=== PATIENT | female | born 1930 | race Caucasian/White ===

== ENCOUNTER 2016-09-07 17:33 | Emergency (ER) | payer MEDICARE ==
[2016-09-07 19:28] LABS: Hematocrit 36 % (35-47); Mean Corpuscular HGB Conc 34 g/dl (31-36); Mean Corpuscular Hemoglobin 33 pg (27-31); Mean Corpuscular Volume 96 fL (80-97); Mean Platelet Volume 9 um3 (7.4-10.4); Red Blood Count 3.71 10^6/ul (4.0-5.4); Red Cell Distribution Width 14 % (10.5-15); White Blood Count 9.6 10^3/ul (3.5-10.8)
[2016-09-07 19:40] LABS: Albumin 3.9 g/dL (3.2-5.2); BUN/Creatinine Ratio 26.6 (8-20); C Reactive Protein 4.37 mg/L (< 5.00); Calcium 9.5 mg/dL (8.6-10.3); EGFR African American 44.6 (>60); EGFR Non-African American 34.7 (>60); Globulin 3.5 g/dL (2-4); Magnesium 2.3 mg/dL (1.9-2.7); Potassium 3.6 mmol/L (3.5-5.0); Total Bilirubin 0.6 mg/dL (0.2-1.0); Total Protein 7.4 g/dL (6.4-8.9)
[2016-09-07 19:46] LABS: Troponin I 0.04 ng/mL (<0.04)
[2016-09-07 19:48] LABS: Add Diff/Slide Review? Slide Review Added; Comments Flag Yes
--- NOTE | 2016-09-07 19:56 | RAD ---
Indication: Dizziness. CT of the brain was performed without IV contrast. Ventricular structures are midline. No midline shift is noted. There is central and cortical atrophy. Periventricular lucency consistent with chronic ischemic white matter changes noted. There is no evidence of intracranial mass or hemorrhage. No other high or low density lesions are identified. Mastoid air cells and paranasal sinuses are otherwise unremarkable. Motion artifact does degrade some the images. IMPRESSION: Atrophy. Chronic ischemic White matter change. No intracranial mass or hemorrhage is noted.
[2016-09-07 20:20] LABS: Mean Platelet Volume 8 um3 (7.4-10.4)
--- NOTE | 2016-09-07 20:37 | RAD ---
Indication: Dizziness, fall. Single frontal view of the chest performed at 1900 hours was reviewed. Comparison is made with previous exam dated March 08, 2012. No mediastinal shift is noted. Heart is of normal size and configuration. Lung louis appear clear. IMPRESSION: NO ACTIVE CARDIOPULMONARY DISEASE IS NOTED.
[2016-09-07] MEDS ORDERED: NS 0.9% 1000 ML* 1,000 ML IV ONE (21:07)
--- NOTE | 2016-09-07 21:52 | ED ---
Eric Poe Billy, scribed for Tomer Mckeon MD on 09/07/16 at 1822 . Dizziness - HPI Summary HPI Summary: Patient is an 86 year-old female with a history of dementia coming to [facility] with a messenger copy for evaluation of an episode of dizziness. She was BIBA from home. Patient was doing yardwork when she bent down and fell over. At this time in the ED, patient denies any symptoms such as chest pain, shortness of breath, dizziness, or pain anywhere in the body. - History Of Current Complaint Chief Complaint: EDDizziness Stated Complaint: FALL Time Seen by Provider: 09/07/16 18:07 Hx Obtained From: Patient Onset/Duration: Resolved Severity Initially: Moderate Severity Currently: Moderate Aggravating Factor(s): Nothing Alleviating Factor(s): Nothing Associated Signs And Symptoms: Negative: Chest Pain, SOB - Allergies/Home Medications Allergies/Adverse Reactions: Allergies Allergy/AdvReac Type Severity Reaction Status Date / Time No Known Allergies Allergy Verified 09/07/16 17:43 Home Medications: Home Medications Cyanocobalamin [Vitamin B-12 Tr] 1,000 mcg PO DAILY 09/07/16 [History Confirmed 09/07/16] Escitalopram Oxalate [Lexapro] 10 mg PO DAILY 09/07/16 [History Confirmed ] Naproxen Sodium [Naproxen Sodium 220 mg] 220 mg PO Q12HR PRN 09/07/16 [History Confirmed 09/07/16] Simvastatin TAB(NF) [Zocor(NF)] 10 mg PO DAILY 09/07/16 [History Confirmed 09/07] Triamterene/HCTZ 37.5-25 MG* [Dyazide CAP*] 1 cap PO EVERY OTHER DAY 09/07/16 [ History Confirmed 09/07/16] PMH/Surg Hx/FS Hx/Imm Hx Cardiovascular History: Reports: Hx Hypertension Neurological History: Reports: Hx Dementia - Cancer History Cancer Type, Location and Year: Breast CA Lt breast Infectious Disease History: No Infectious Disease History: Denies: Traveled Outside the [place] in Last 30 Days - Family History Family History: No family history of breast cancer. - Social History Alcohol Use: None Substance Use Type: Reports: None Smoking Status (MU): Former Smoker Review of Systems Negative: Chest Pain Negative: Shortness Of Breath Negative: Arthralgia, Myalgia Neurological: Other - dizzy All Other Systems Reviewed And Are Negative: Yes Physical Exam Triage Information Reviewed: Yes Vital Signs On Initial Exam: Initial Vitals Temp Pulse Resp BP Pulse Ox 98.2 F 70 13 146/91 97 09/07/16 17:38 09/07/16 17:38 09/07/16 17:38 09/07/16 17:38 09/07/16 17:38 Vital Signs Reviewed: Yes Appearance: Positive: Well-Appearing, No Pain Distress Skin: Positive: Warm, Skin Color Reflects Adequate Perfusion, Dry Head/Face: Positive: Normal Head/Face Inspection Eyes: Positive: EOMI, HODAN ENT: Positive: Normal ENT inspection Neck: Positive: Supple, Nontender Respiratory/Lung Sounds: Positive: Clear to Auscultation, Breath Sounds Present Cardiovascular: Positive: RRR Abdomen Description: Positive: Nontender, Soft Bowel Sounds: Positive: Present Musculoskeletal: Positive: Normal, Strength/ROM Intact Neurological: Positive: Normal, Sensory/Motor Intact, Alert, Oriented to Person Place, Time Psychiatric: Positive: Affect/Mood Appropriate - Sujey Coma Scale Coma Scale Total: 14 Diagnostics - Vital Signs Vital Signs Temp Pulse Resp BP Pulse Ox 09/07/16 18:12 65 15 97 09/07/16 17:45 98.7 F 69 16 146/91 97 09/07/16 17:38 98.2 F 70 13 146/91 97 - Laboratory Lab Results: Lab Results 09/07/16 09/07/16 09/07/16 Range/Units 19:15 19:15 19:15 WBC 9.6 (3.5-10.8) 10^3/ul RBC 3.71 L (4.0-5.4) 10^6/ul Hgb 12.0 (12.0-16.0) g/dl Hct 36 (35-47) % MCV 96 (80-97) fL MCH 33 H (27-31) pg MCHC 34 (31-36) g/dl RDW 14 (10.5-15) % Plt Count 71 L (150-450) 10^3/ul MPV 9 (7.4-10.4) um3 Neut % (Auto) 81.8 (38-83) % Lymph % (Auto) 9.9 L (25-47) % [place] % (Auto) 3.8 (1-9) % Eos % (Auto) 2.9 (0-6) % Baso % (Auto) 1.6 (0-2) % Absolute Neuts (auto) 7.8 H (1.5-7.7) 10^3/ul Absolute Lymphs (auto) 1.0 (1.0-4.8) 10^3/ul Absolute Monos (auto) 0.4 (0-0.8) 10^3/ul Absolute Eos (auto) 0.3 (0-0.6) 10^3/ul Absolute Basos (auto) 0.1 (0-0.2) 10^3/ul Absolute Nucleated RBC 0.01 10^3/ul Nucleated RBC % 0.1 INR (Anticoag Therapy) 0.90 (0.89-1.11) APTT 16.6 L (26.0-36.3) seconds Sodium 138 (133-145) mmol/L Potassium 3.6 (3.5-5.0) mmol/L Chloride 100 L (101-111) mmol/L Carbon Dioxide 28 (22-32) mmol/L Anion Gap 10 (2-11) mmol/L BUN 38 H (6-24) mg/dL Creatinine 1.43 H (0.51-0.95) mg/dL Est GFR ( Amer) 44.6 (>60) Est GFR (Non-Af Amer) 34.7 (>60) BUN/Creatinine Ratio 26.6 H (8-20) Glucose 108 H (70-100) mg/dL Lactic Acid (0.5-2.0) mmol/L Calcium 9.5 (8.6-10.3) mg/dL Magnesium 2.3 (1.9-2.7) mg/dL Total Bilirubin 0.60 (0.2-1.0) mg/dL AST 21 (13-39) U/L ALT 12 (7-52) U/L Alkaline Phosphatase 77 (34-104) U/L Total Creatine Kinase 93 (10-223) U/L CK-MB (CK-2) 4.9 (0.6-6.3) ng/mL Troponin I 0.04 H* (<0.04) ng/mL C-Reactive Protein 4.37 (< 5.00) mg/L Total Protein 7.4 (6.4-8.9) g/dL Albumin 3.9 (3.2-5.2) g/dL Globulin 3.5 (2-4) g/dL Albumin/Globulin Ratio 1.1 (1-3) Lipase 158 H (11.0-82.0) U/L TSH (0.34-5.60) mcIU/mL 09/07/16 09/07/16 09/07/16 Range/Units 19:15 19:35 19:58 WBC (3.5-10.8) 10^3/ul RBC (4.0-5.4) 10^6/ul Hgb (12.0-16.0) g/dl Hct (35-47) % MCV (80-97) fL MCH (27-31) pg MCHC (31-36) g/dl RDW (10.5-15) % Plt Count 215 (150-450) 10^3/ul MPV 8 (7.4-10.4) um3 Neut % (Auto) (38-83) % Lymph % (Auto) (25-47) % [place] % (Auto) (1-9) % Eos % (Auto) (0-6) % Baso % (Auto) (0-2) % Absolute Neuts (auto) (1.5-7.7) 10^3/ul Absolute Lymphs (auto) (1.0-4.8) 10^3/ul Absolute Monos (auto) (0-0.8) 10^3/ul Absolute Eos (auto) (0-0.6) 10^3/ul Absolute Basos (auto) (0-0.2) 10^3/ul Absolute Nucleated RBC 10^3/ul Nucleated RBC % INR (Anticoag Therapy) (0.89-1.11) APTT (26.0-36.3) seconds Sodium (133-145) mmol/L Potassium (3.5-5.0) mmol/L Chloride (101-111) mmol/L Carbon Dioxide (22-32) mmol/L Anion Gap (2-11) mmol/L BUN (6-24) mg/dL Creatinine (0.51-0.95) mg/dL Est GFR ( Amer) (>60) Est GFR (Non-Af Amer) (>60) BUN/Creatinine Ratio (8-20) Glucose (70-100) mg/dL Lactic Acid 0.9 (0.5-2.0) mmol/L Calcium (8.6-10.3) mg/dL Magnesium (1.9-2.7) mg/dL Total Bilirubin (0.2-1.0) mg/dL AST (13-39) U/L ALT (7-52) U/L Alkaline Phosphatase (34-104) U/L Total Creatine Kinase (10-223) U/L CK-MB (CK-2) (0.6-6.3) ng/mL Troponin I (<0.04) ng/mL C-Reactive Protein (< 5.00) mg/L Total Protein (6.4-8.9) g/dL Albumin (3.2-5.2) g/dL Globulin (2-4) g/dL Albumin/Globulin Ratio (1-3) Lipase (11.0-82.0) U/L TSH 2.21 (0.34-5.60) mcIU/mL Result Diagrams: 09/07/16 19:58 09/07/16 19:15 Lab Statement: Any lab studies that have been ordered have been reviewed, and results considered in the medical decision making process. - Radiology CXR Xray Interpretation: No Acute Changes Radiology Interpretation Completed By: Radiologist - CT Brain CT Interpretation Completed By: Radiologist - Atrophy. Chronic ischemic White matter change. No intracranial mass or hemorrhage is noted. - EKG 1746 Cardiac Rate: NL - 68 bpm EKG Rhythm: Sinus Rhythm ST Segment: Normal Ectopy: None Re-Evaluation - Re-Evaluation First Eval Re-Evaluation Time: 21:00 Comment: Labs and imaging reviewed. Dizzy Course/Dx - Course Course Of Treatment: NO CRITICAL CARE TIME Assessment/Plan: PATIENT STABLE AND WELL IN ED. AMBULATED WITHOUT DIFFICULTY. PATIENT DENIES CHEST PAIN.SHE HAS DEMENTIA. THE PLAN IS A 3 HOUR TROPONIN; IF NO INCREASE, THEN DISCHARGE HOME. IF IT ELEVATES OR PATIENT UNWELL, THEN ADMISSION. - Diagnoses Provider Diagnoses: Fall Discharge - Discharge Plan Condition: Stable Disposition: HOME Patient Education Materials: Fall Prevention (ED) Referrals: Vanesa Kaufman MD [Primary Care Provider] - Additional Instructions: FOLLOW UP WITH YOUR DOCTOR. RETURN TO THE EMERGENCY DEPARTMENT FOR ANY WORSENING OF YOUR CONDITION OR QUESTIONS OR CONCERNS. The documentation as recorded by the Eric vail Billy accurately reflects the service I personally performed and the decisions made by me, Tomer Mckeon MD.
[2016-09-07 22:21] LABS: Urine Bacteria Absent (Absent); Urine Bilirubin Negative (Negative); Urine Glucose Negative (Negative); Urine Nitrite Negative (Negative)
[2016-09-07 23:24] VITALS: BP 125/73
== END 2016-09-07 23:27 | disposition home or self-care (01) ==
LOC: ED 17:33
DX: R42 Dizziness and giddiness (principal); F03.90 Unspecified dementia, unspecified severity, without behavioral disturbance, psychotic disturbance, mood disturbance, and anxiety; I10 Essential (primary) hypertension; Z87.891 Personal history of nicotine dependence; W19.XXXA Unspecified fall, initial encounter; Y93.H2 Activity, gardening and landscaping; Y92.9 Unspecified place or not applicable
CPT/HCPCS: 36415; 70450; 71010; 80053; 81003; 81015; 82550; 82553; 83605; 83690; 83735; 84443; 84484; 85025; 85049; 85610; 85730; 86140; 87086; 96360; 99284

== ENCOUNTER 2016-10-24 15:00 | Emergency (ER) | payer MEDICARE ==
[2016-10-24] MEDS ORDERED: NS 0.9% 1000 ML* 500 ML IV ONE (15:35)
[2016-10-24 16:08] LABS: Hematocrit 35 % (35-47); Mean Corpuscular HGB Conc 34 g/dl (31-36); Mean Corpuscular Hemoglobin 32 pg (27-31); Mean Corpuscular Volume 95 fL (80-97); Mean Platelet Volume 8 um3 (7.4-10.4); Red Blood Count 3.71 10^6/ul (4.0-5.4); Red Cell Distribution Width 14 % (10.5-15); White Blood Count 7.7 10^3/ul (3.5-10.8)
[2016-10-24 16:15] LABS: ALT 15 U/L (7-52); AST 25 U/L (13-39); Albumin 3.9 g/dL (3.2-5.2); Alkaline Phosphatase 63 U/L (34-104); Anion Gap 8 mmol/L (2-11); BUN/Creatinine Ratio 32.9 (8-20); Blood Urea Nitrogen 48 mg/dL (6-24); CO2 Carbon Dioxide 30 mmol/L (22-32); Calcium 9.9 mg/dL (8.6-10.3); Chloride 101 mmol/L (101-111); EGFR African American 43.6 (>60); EGFR Non-African American 33.9 (>60); Globulin 3.7 g/dL (2-4); Glucose 92 mg/dL (70-100); Potassium 3.6 mmol/L (3.5-5.0); Sodium 139 mmol/L (133-145); Total Protein 7.6 g/dL (6.4-8.9)
--- NOTE | 2016-10-24 16:29 | RAD ---
INDICATION: Altered mental status. COMPARISON: Comparison is made with prior study from September 07, 2016. TECHNIQUE: A portable view of the chest was obtained. FINDINGS: Cardiac and mediastinal contours appear to be within normal limits. The lungs are clear. No pleural effusion is seen. There are multiple surgical clips in the left axilla. IMPRESSION: NO EVIDENCE FOR ACUTE DISEASE.
[2016-10-24 16:58] LABS: Alcohol < 10 mg/dL (<10)
[2016-10-24 17:06] VITALS: BP 110/54
--- NOTE | 2016-10-25 11:08 | ED ---
Kelby Poe Auryana, scribed for Joshua Lucero MD on 10/24/16 at 1653 . Neurological HPI - HPI Summary HPI Summary: 86 y/o female presents ED s/p a fall earlier today. Patient was found on her lawn without pants. Patient reports no memory of the fall- (+) LOC. Nurse also reports that the patient had 1 prior episode - fell into a ditch. She denies any pain. PMHx is significant for dementia. - History of Current Complaint Chief Complaint: EDHipPelvisInjury Stated Complaint: FALL Time Seen by Provider: 10/24/16 15:24 Hx Obtained From: Patient Onset/Duration: Sudden Onset Timing: Sudden Onset Current Severity: Mild Seizure Severity: Mild Neurological Deficit Location: Generalized Pain Intensity: 0 Pain Scale Used: 0-10 Numeric Syncope Context: Unwitnessed Associated Signs and Symptoms: Positive: Loss of Consciousness. Negative: Pain , Fever Similar Episode/Dx as: SEE HPI - Allergy/Home Medications Allergies/Adverse Reactions: Allergies Allergy/AdvReac Type Severity Reaction Status Date / Time No Known Allergies Allergy Verified 09/07/16 17:43 Home Medications: Home Medications Escitalopram (NF) [Lexapro 10 mg (NF)] 10 mg PO DAILY 10/24/16 [History Confirmed 10/24/16] Naproxen Sodium [Naproxen Sodium 220 mg cap] 220 mg PO BID PRN 10/24/16 [ History Confirmed 10/24/16] PMH/Surg Hx/FS Hx/Imm Hx Cardiovascular History: Reports: Hx Hypertension Neurological History: Reports: Hx Dementia - Cancer History Cancer Type, Location and Year: Breast CA Lt breast Infectious Disease History: No Infectious Disease History: Denies: Traveled Outside the [place] in Last 30 Days - Family History Known Family History: Positive: Cardiac Disease - Coronary Artery Disease Family History: No family history of breast cancer. 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 GENERAL: Patient is a well-developed and nourished elderly female who is lying comfortable in the stretcher. Patient is not in any acute respiratory distress. HEAD AND FACE: No signs of trauma. No ecchymosis, hematomas or skull depressions. No sinus tenderness. EYES: PERRLA, EOMI x 2, No injected conjunctiva, no nystagmus. EARS: Hearing grossly intact. Ear canals and tympanic membranes are within normal limits. MOUTH: Oropharynx within normal limits. NECK: Supple, trachea is midline, no adenopathy, no JVD, no carotid bruit, no c- spine tenderness, neck with full ROM. CHEST: Symmetric, no tenderness at palpation LUNGS: Clear to auscultation bilaterally. No wheezing or crackles. CVS: Regular rate and rhythm, S1 and S2 present, no murmurs or gallops appreciated. ABDOMEN: Soft, non-tender. No signs of distention. No rebound no guarding, and no masses palpated. Bowel sounds are normal. EXTREMITIES: FROM in all major joints, bilateral LE 1+ edema, no cyanosis or clubbing. NEURO: Alert and oriented x 3. No acute neurological deficits. Dementia at baseline. Speech is normal and follows commands. SKIN: Dry and warm. Scratch areas in back and legs. Triage Information Reviewed: Yes Vital Signs On Initial Exam: Initial Vitals Temp Pulse Resp BP Pulse Ox 99.0 F 84 20 118/72 96 10/24/16 15:05 10/24/16 15:05 10/24/16 15:05 10/24/16 15:05 10/24/16 15:05 Vital Signs Reviewed: Yes Diagnostics - Vital Signs Vital Signs Temp Pulse Resp BP Pulse Ox 10/24/16 15:33 98.6 F 89 14 116/89 99 10/24/16 15:05 99.0 F 84 20 118/72 96 - Laboratory Lab Results: Lab Results 10/24/16 10/24/16 10/24/16 Range/Units 15:52 15:52 15:52 WBC 7.7 (3.5-10.8) 10^3/ul RBC 3.71 L (4.0-5.4) 10^6/ul Hgb 12.0 (12.0-16.0) g/dl Hct 35 (35-47) % MCV 95 (80-97) fL MCH 32 H (27-31) pg MCHC 34 (31-36) g/dl RDW 14 (10.5-15) % Plt Count 238 (150-450) 10^3/ul MPV 8 (7.4-10.4) um3 Neut % (Auto) 70.0 (38-83) % Lymph % (Auto) 16.5 L (25-47) % [place] % (Auto) 9.6 H (1-9) % Eos % (Auto) 3.2 (0-6) % Baso % (Auto) 0.7 (0-2) % Absolute Neuts (auto) 5.4 (1.5-7.7) 10^3/ul Absolute Lymphs (auto) 1.3 (1.0-4.8) 10^3/ul Absolute Monos (auto) 0.7 (0-0.8) 10^3/ul Absolute Eos (auto) 0.2 (0-0.6) 10^3/ul Absolute Basos (auto) 0.1 (0-0.2) 10^3/ul Absolute Nucleated RBC 0 10^3/ul Nucleated RBC % 0 Sodium 139 (133-145) mmol/L Potassium 3.6 (3.5-5.0) mmol/L Chloride 101 (101-111) mmol/L Carbon Dioxide 30 (22-32) mmol/L Anion Gap 8 (2-11) mmol/L BUN 48 H (6-24) mg/dL Creatinine 1.46 H (0.51-0.95) mg/dL Est GFR ( Amer) 43.6 (>60) Est GFR (Non-Af Amer) 33.9 (>60) BUN/Creatinine Ratio 32.9 H (8-20) Glucose 92 (70-100) mg/dL Lactic Acid 0.7 (0.5-2.0) mmol/L Calcium 9.9 (8.6-10.3) mg/dL Total Bilirubin 1.20 H (0.2-1.0) mg/dL AST 25 (13-39) U/L ALT 15 (7-52) U/L Alkaline Phosphatase 63 (34-104) U/L Ammonia (16-53) mol/L Total Protein 7.6 (6.4-8.9) g/dL Albumin 3.9 (3.2-5.2) g/dL Globulin 3.7 (2-4) g/dL Albumin/Globulin Ratio 1.1 (1-3) Serum Alcohol < 10 (<10) mg/dL 10/24/16 Range/Units 15:52 WBC (3.5-10.8) 10^3/ul RBC (4.0-5.4) 10^6/ul Hgb (12.0-16.0) g/dl Hct (35-47) % MCV (80-97) fL MCH (27-31) pg MCHC (31-36) g/dl RDW (10.5-15) % Plt Count (150-450) 10^3/ul MPV (7.4-10.4) um3 Neut % (Auto) (38-83) % Lymph % (Auto) (25-47) % [place] % (Auto) (1-9) % Eos % (Auto) (0-6) % Baso % (Auto) (0-2) % Absolute Neuts (auto) (1.5-7.7) 10^3/ul Absolute Lymphs (auto) (1.0-4.8) 10^3/ul Absolute Monos (auto) (0-0.8) 10^3/ul Absolute Eos (auto) (0-0.6) 10^3/ul Absolute Basos (auto) (0-0.2) 10^3/ul Absolute Nucleated RBC 10^3/ul Nucleated RBC % Sodium (133-145) mmol/L Potassium (3.5-5.0) mmol/L Chloride (101-111) mmol/L Carbon Dioxide (22-32) mmol/L Anion Gap (2-11) mmol/L BUN (6-24) mg/dL Creatinine (0.51-0.95) mg/dL Est GFR ( Amer) (>60) Est GFR (Non-Af Amer) (>60) BUN/Creatinine Ratio (8-20) Glucose (70-100) mg/dL Lactic Acid (0.5-2.0) mmol/L Calcium (8.6-10.3) mg/dL Total Bilirubin (0.2-1.0) mg/dL AST (13-39) U/L ALT (7-52) U/L Alkaline Phosphatase (34-104) U/L Ammonia 30 (16-53) mol/L Total Protein (6.4-8.9) g/dL Albumin (3.2-5.2) g/dL Globulin (2-4) g/dL Albumin/Globulin Ratio (1-3) Serum Alcohol (<10) mg/dL Result Diagrams: 10/24/16 15:52 10/24/16 15:52 Lab Statement: Any lab studies that have been ordered have been reviewed, and results considered in the medical decision making process. - Radiology Chest XRAY Xray Interpretation: No Acute Changes - No evidence for acute disease. Radiology Interpretation Completed By: Radiologist Course/Dx - Course Assessment/Plan: 86 y/o female presents ED s/p a fall earlier today. Patient was found on her lawn without pants. Patient reports no memory of the fall- (+ ) LOC. Nurse also reports that the patient had 1 prior episode - fell into a ditch. She denies any pain. PMHx is significant for dementia. Tests were WNL, except for chronic renal failure. In the ED course, Pt was given iv fluids. At this point the pt feels better with no complaints and was able to ambulate in the ED. Patients brother came in and reports she has history of dementia and that she is at her baseline. Therefore he wanted to take her home and he will stay with her for the next couple of days. The patient is hemodynamically stable and AOx3. - Diagnoses Provider Diagnoses: Dementia Discharge - Discharge Plan Condition: Stable Disposition: HOME Patient Education Materials: Dementia (ED) Referrals: Vanesa Kaufman MD [Primary Care Provider] - 2 Days The documentation as recorded by the Kelby vail Auryana accurately reflects the service I personally performed and the decisions made by , Joshua Lucero MD.
== END 2016-10-24 17:08 | disposition home or self-care (01) ==
LOC: ED 15:00
DX: F03.90 Unspecified dementia, unspecified severity, without behavioral disturbance, psychotic disturbance, mood disturbance, and anxiety (principal); R55 Syncope and collapse; I10 Essential (primary) hypertension; Z85.3 Personal history of malignant neoplasm of breast; Z87.891 Personal history of nicotine dependence
CPT/HCPCS: 36415; 71010; 80053; 80320; 82140; 83605; 85025; 99282; G0480

== ENCOUNTER 2017-11-19 09:03 | Observation (INO) | payer MEDICARE, MEDICAID ==
--- NOTE | 2017-11-19 09:51 | RAD ---
HISTORY: HEAD INJURY, AMS COMPARISONS: None TECHNIQUE: Multiple contiguous axial CT scans were obtained of the head without intravenous contrast. FINDINGS: HEMORRHAGE/INFARCT: There is no hemorrhage or acute infarct. MASSES/SHIFT: There is no mass or shift. 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 This is stable. SULCI AND VENTRICLES: There is diffuse and proportional enlargement of the sulci and ventricles. CEREBRUM: There is diffuse hypoattenuation of the periventricular and subcortical white matter. BRAINSTEM: There are no focal parenchymal abnormalities. CEREBELLUM: There are no focal parenchymal abnormalities. VESSELS: There is calcification of the cavernous segments of the internal carotid arteries bilaterally. PARANASAL SINUSES: The paranasal sinuses are clear. ORBITS: The orbits are unremarkable. BONES AND SOFT TISSUE: There is soft tissue swelling along the left frontal scalp. OTHER: None IMPRESSION: NO ACUTE INTRACRANIAL PATHOLOGY. DIFFUSE INVOLUTIONAL CHANGE WITH CHRONIC SMALL VESSEL ISCHEMIC CHANGES.
--- NOTE | 2017-11-19 10:02 | RAD ---
INDICATION: Head injury. Altered mental status. COMPARISON: No relevant prior exams available on the [facility] PACS for comparison. TECHNIQUE: Multidetector CT images foramen magnum to lung apices without contrast. Multiplanar reformation. REPORT: Atherosclerotic calcification at the carotid bifurcations. 2 mm degenerative C3-C4 and C4-C5 anterolisthesis. Negative for facet subluxation at any level. Chronic appearing probable degenerative loss of height at the C5, C6, and C7 vertebral bodies with complete disc space loss at C5-C6 and C6-C7 with ankylosis. Probable ankylosis at C7-T1. Diffuse degenerative spondylosis and facet joint osteoarthritis. Negative for fracture. At C3-C4 uncinate process spurring and facet joint osteoarthritis results in moderately severe bilateral foraminal stenosis. At C5-C6 dorsal spondylitic ridging results in only mild impression on the ventral margin of the thecal sac with congenitally generous pedicles lengths mitigating against more significant central canal stenosis. At C6-C7 uncinate process spurring and facet joint osteoarthritis results in mild RIGHT unilateral foraminal stenosis. Unremarkable paravertebral soft tissues. IMPRESSION: #. No CT evidence for traumatic cervical spine injury. #. 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 Ankylosis at C5-C6, C6-C7, and likely C7-T1 levels.
--- NOTE | 2017-11-19 10:18 | RAD ---
HISTORY: FALL WEAKNESS COMPARISONS: October 24, 2016 VIEWS: 1: frontal portable view of the chest at 9:52 AM FINDINGS: LINES AND TUBES: None. CARDIOMEDIASTINAL SILHOUETTE: The cardiomediastinal silhouette is normal for portable technique. PLEURA: The costophrenic angles are sharp. No pleural abnormalities are noted. LUNG PARENCHYMA: The lungs are clear. ABDOMEN: The upper abdomen is clear. There is no subphrenic gas. BONES AND SOFT TISSUES: Surgical clips are noted in the left axilla IMPRESSION: NO ACTIVE CARDIOPULMONARY DISEASE.
[2017-11-19 10:24] LABS: ABS Basophils 0 10^3/ul (0-0.2); ABS Eosinophils 0.1 10^3/ul (0-0.6); ABS Lymphocytes 0.6 10^3/ul (1.0-4.8); ABS Monocytes 0.5 10^3/ul (0-0.8); ABS Neutrophils 5.8 10^3/ul (1.5-7.7); ABS Nucleated RBC 0 10^3/ul; Hematocrit 35 % (35-47); Hemoglobin 12.2 g/dl (12.0-16.0); Lymphocyte % 9.1 % (25-47); Mean Corpuscular HGB Conc 35 g/dl (31-36); Mean Corpuscular Hemoglobin 33 pg (27-31); Mean Corpuscular Volume 94 fL (80-97); Mean Platelet Volume 8.4 um3 (7.4-10.4); Nucleated Red Blood Cells % 0.1; Platelet Count 188 10^3/ul (150-450); Red Blood Count 3.72 10^6/ul (4.00-5.40); Red Cell Distribution Width 14 % (10.5-15); White Blood Count 7.1 10^3/ul (3.5-10.8)
[2017-11-19 10:39] LABS: INR 0.93 (0.77-1.02)
[2017-11-19 10:44] LABS: EGFR Non-African American 38.7 (>60)
[2017-11-19 13:06] LABS: Urine Appearance Cloudy; Urine Blood 1+ (Negative); Urine Color Yellow; Urine Ketones Negative (Negative); Urine Protein Negative (Negative); Urine Red Blood Cell Trace(0-2/hpf) (Absent); Urine Specific Gravity 1.013 (1.010-1.030); Urine Urobilinogen Negative (Negative); Urine White Blood Cell 2+(11-20/hpf) (Absent)
[2017-11-19] MEDS ORDERED: Ciprofloxacin 400MG IVPREMIX(* 400 MG/200 ML BAG IVPB ONE (13:27)
[2017-11-19] MEDS ORDERED: cefTRIAXone(*) 1 GM in NS 0.9% 50 ML* 50 ML IVPB ONE (13:29)
[2017-11-19] MEDS ORDERED: NS 0.9% 1000 ML* 2,000 ML IV ONE (13:31)
[2017-11-19] MEDS ORDERED: Ondansetron INJ* 2 MG/ML VIAL IV PRN (14:53)
[2017-11-19] MEDS ORDERED: Acetaminophen TAB* 325 MG PO PRN (14:53)
[2017-11-19] MEDS ORDERED: Meclizine TAB* 12.5 MG PO PRN (14:55)
[2017-11-19] MEDS ORDERED: Potassium Chloride LIQUID* 20 MEQ PACKET PO ONE (14:58)
[2017-11-19] MEDS ORDERED: NS 0.9% 1000 ML* 1,000 ML IV SCH (15:00)
[2017-11-19] MEDS ORDERED: NS 0.9% 500 ML* 500 ML IV ONE (18:58)
[2017-11-19 19:47] LABS: INR 0.94 (0.77-1.02)
[2017-11-19] MEDS: Heparin VIAL(*) 5000 UNITS/ML VIAL (FIVE THOUSAND) SUBCUT SCH (20:54)
--- NOTE | 2017-11-19 22:08 | HP ---
CC: Dr. Hernandez* HISTORY AND PHYSICAL: DATE OF ADMISSION: 11/19/17 PRIMARY CARE PROVIDER: Dr. Hernandez. ATTENDING PHYSICIAN WHILE IN THE HOSPITAL: Landon Steiner MD* (report dictated by Fabian Garcia NP). CHIEF COMPLAINT: Fall. HISTORY OF PRESENT ILLNESS: I would like to preface the report by stating that this patient has a significant amount of underlying dementia. She really does not remember what happened today. She is coming in to our emergency department today. Apparently, according to the aide, the niece had placed the patient on the toilet, which was her daily routine, she was going to use the restroom. She was on the toilet and the niece had stepped out to give her privacy, she was making breakfast. The next thing that happened is the niece went back in, checked on the patient and the patient was found on the floor. It is unclear if she tried standing up. It is unclear if she had syncope. The patient does not recall any of this. It is unclear if she hit her head. There was a skin abrasion to the left shoulder and skin abrasion to the left lower extremity, but there was no pain there. The aide, who sees her on a daily basis, said that she has been recently treated for a UTI. She just finished Bactrim on Thursday. Her appetite has been improving and she has been feeling better. There was 1 report of vomiting on Thursday, but no abdominal pain, no diarrhea. There have been no reports of fever, no reports of cough or shortness of breath. There was concern because of the fall. She came into the ED. There was concern for possible syncope, although this is not clear if she did or not and there was concern that she may have a UTI and the hospitalist service was asked to evaluate for admission. PAST MEDICAL HISTORY: Significant for: 1. Hypertension. 2. Breast cancer. 3. Psoriasis. 4. Severe dementia. 5. Mild pancreatitis. PAST SURGICAL HISTORY: 1. The patient has had an ORIF of the left lower extremity. 2. She has had a lumpectomy. HOME MEDICATIONS: According to the list obtained, include: 1. Dyazide 1 capsule p.o. every other day. 2. Multivitamin 1 tablet daily. 3. Lexapro 10 mg daily. 4. Simvastatin 10 mg daily. 5. Meclizine 12.5 mg p.o. b.i.d. as needed. ALLERGIES TO MEDICATIONS: Include no known drug allergies. FAMILY HISTORY: Unknown. SOCIAL HISTORY: She is a former smoker, unclear how long and how much she smoked. She does not drink alcohol. Surrogate decision maker is her brother, Carlos Enrique. REVIEW OF SYSTEMS: Really unable to be obtained directly from the patient giving her advanced dementia. It was attempted, but again I question if she is understanding what I am asking her. PHYSICAL EXAMINATION GENERAL: At this time, Ms. Montano is an 87-year-old female patient. She is sitting in the ED stretcher. She does not appear to be in any acute distress. She appears to be well nourished and well developed. VITAL SIGNS: Blood pressure 96/63, pulse 85, respirations 18, O2 sat 95% on room air, temperature 97.2. HEENT: Head: Atraumatic, normocephalic. Eyes: Sclerae anicteric. Throat: Oral mucosa appears to be moist. No oropharyngeal erythema. NECK: Supple. LUNGS: Clear. No wheezing, rales, or rhonchi. HEART: Sounds S1, S2. Regular rate and rhythm. No murmurs, rubs, or gallops. ABDOMEN: Soft, flat, nontender. Bowel sounds are present. EXTREMITIES: Pulses 2+ throughout. She is able to move all 4 extremities with 5/5 strength. She had no pain on passive range of motion to the left shoulder or the left lower extremity. No pain was noted. NEUROLOGICAL: She is awake. She is oriented to herself only. She is confused to time and place. Speech clear. She had no gross focal deficits. SKIN: She does have an abrasion to the left shoulder. She has ecchymosis noted to the left lower extremity. No other open areas were noted. DIAGNOSTIC STUDIES/LAB DATA: Labs reveal WBC of 7.1, RBC of 3.72, hemoglobin of 12.2, hematocrit 35, platelet count of 188. INR 0.93, PTT of 19.1. Sodium 135, potassium 3.4, chloride 100, bicarb 25, BUN 22, creatinine 1.30, which is near her baseline. The glucose is 122, lactic 2.1, calcium 9.6. Total bili 0.9 , AST 28, ALT 14, alk phos 68. Troponin 0.01. Albumin of 4.0. Urinalysis showed 1+ blood, trace leukocyte esterase, 2+ wbc's, absent bacteria. Urine culture from last UA was negative. She had multiple imaging in the ED. Brain CT shows no acute intracranial pathology, diffuse involutional change with chronic small vessel ischemic changes. Cervical spine CT showed no CT evidence for traumatic cervical spine injury, diffuse advanced degenerative spondylosis and facet joint arthritis, at C5-6, C6-7, C7-T1. Chest x-ray obtained today showed no active cardiopulmonary disease. Old medical records were reviewed. ASSESSMENT AND PLAN: Ms. Montano is an 87-year-old female patient presenting to the ED today with complaints of a fall of unclear etiology. We were asked to evaluate for admission. She will be admitted under observation status for: 1. Fall. Again, it is possible that she may have syncopized, although it is unclear. This was unwitnessed. The patient cannot give me much history. I assume this was probably just a mechanical fall; however, I will admit her, cycle her troponins, check orthostatics, check an echo. In addition to this, she had a CT brain. I will cycle her troponins, place her on telemetry, monitor for any arrhythmias and we will continue to follow. She also does have a history of vertigo, this could have been vertigo, but she is not eliciting any signs of dizziness. We will need to monitor her, have PT evaluate her. If there is a concern for this, there is p.r.n. meclizine ordered and we will continue to follow. 2. Hypertension. Continue meds as prescribed. 3. Breast cancer. Follow up with PCP. 4. History of psoriasis. Not an active issue. 5. History of pancreatitis. She did have the 1 episode of vomiting. She is not eliciting any pain now, but I will check lipase just to be sure. 6. Dementia. Continue with supportive care. 7. DVT prophylaxis, high risk. She will be placed on heparin subcu. 8. Code status is unknown at this point. The aide is unsure. There is a brother, we will try to get in touch with him. There is no MOLST on file. For the time being until I know for sure, I will leave her as a full code. 9. Fluids, electrolytes, and nutrition: She can have a regular diet. I will replace her potassium as it is low. TIME SPENT: Time spent on the admission was 60 minutes, greater than half the time was spent [id number] with the patient obtaining my history and physical, other half of the time was spent going over the plan of care with the patient and implementing the plan of care. I did discuss the plan of care with my attending, Dr. Steiner, he is in agreement. FABIAN GARCIA, WILLIE [id number]/CPS #: [id number] ARABELLA
[2017-11-20 05:36] LABS: Hematocrit 28 % (35-47); Hemoglobin 9.7 g/dl (12.0-16.0); Mean Corpuscular HGB Conc 35 g/dl (31-36); Mean Corpuscular Hemoglobin 33 pg (27-31); Mean Corpuscular Volume 94 fL (80-97); Mean Platelet Volume 8.3 um3 (7.4-10.4); Platelet Count 167 10^3/ul (150-450); Red Blood Count 2.95 10^6/ul (4.00-5.40); Red Cell Distribution Width 14 % (10.5-15); White Blood Count 5.3 10^3/ul (3.5-10.8)
[2017-11-20 05:40] LABS: ABS Basophils 0.1 10^3/ul (0-0.2); ABS Eosinophils 0.1 10^3/ul (0-0.6); ABS Lymphocytes 1.5 10^3/ul (1.0-4.8); ABS Monocytes 0.8 10^3/ul (0-0.8); ABS Neutrophils 2.7 10^3/ul (1.5-7.7); ABS Nucleated RBC 0 10^3/ul
[2017-11-20 05:41] LABS: INR 0.96 (0.77-1.02)
[2017-11-20 05:51] LABS: EGFR Non-African American 50.6 (>60)
[2017-11-20 05:59] LABS: ABS Basophils 0 10^3/ul (0-0.2); ABS Neutrophils 2.5 10^3/ul (1.5-7.7); Monocytes % 14 % (0-7)
[2017-11-20] MEDS: Heparin VIAL(*) 5000 UNITS/ML VIAL (FIVE THOUSAND) SUBCUT SCH ×3 (06:13→22:15)
[2017-11-20] MEDS: CMC:Escitalopram (NF) 10 MG TAB PO SCH (08:33)
[2017-11-20] MEDS: CMC:Simvastatin TAB(NF) 10 MG TAB PO SCH (08:33)
[2017-11-20] MEDS: Multivitamins/Minerals TAB PO SCH (08:33)
--- NOTE | 2017-11-20 11:39 | ECHO ---
Patient: NANCY BOB [facility] Rec#: [id number] : 1930 Date: 11/20/2017 Age: 87y Height: 157 cm / 61.8 in Weight: 55.3 kg / 121.9 lbs Sex: F BSA: 1.55 Room#: [facility] Admit Date#: 11/20/2017 Type: Inpatient Referring: Fabian Garcia NP Reading: Cata Pérez MD Mobility Specialist: Janell Alba RDCS CC: Vanesa Kaufman MD Transthoracic Echocardiogram Indication: Syncope BP: 111/50 HR: 66 Rhythm: NSR with PVCs Findings History: Dementia, HTN, left breast cancer, former smoker. Technical Comments: The study quality is fair. Completed at 1045. Left Ventricle: The left ventricular chamber size is normal. There is no left ventricular hypertrophy. Global left ventricular wall motion and contractility are within normal limits. There is normal left ventricular systolic function. The estimated ejection fraction is 55-60%. Abnormal left ventricular diastolic function is observed. There is an E to A reversal in the mitral valve flow pattern suggestive of diastolic dysfunction. Left Atrium: The left atrial chamber size is normal. Right Ventricle: Moderator Band present. The right ventricular cavity size is normal. The right ventricular global systolic function is normal. Right Atrium: The right atrial cavity size is normal. Aortic Valve: The aortic valve is trileaflet. The aortic valve leaflets are mildly thickened. There is trace to mild aortic regurgitation. There is no evidence of aortic stenosis. Mitral Valve: There is mitral annular calcification. The mitral valve leaflets are mildly thickened. There is trace to mild mitral regurgitation. There is no evidence of mitral stenosis. Tricuspid Valve: The tricuspid valve leaflets are normal. There is trace tricuspid regurgitation. Unable to estimate the right ventricular systolic pressure. There is no tricuspid stenosis. Pulmonic Valve: The pulmonic valve appears normal. There is a trace pulmonic regurgitation. There is no pulmonic stenosis. Pericardium: There is no significant pericardial effusion. 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 There is no dilatation of the aortic arch. The aortic root is normal in size. Pulmonary Artery: The main pulmonary artery is not well visualized. Venous: The inferior vena cava appears normal in size. There is a greater than 50% respiratory change in the inferior vena cava dimension. Summary: There are changes noted when compared to the previous study done on 11/16/2003, MR, AI and TR are new. Ascending aorta dilatation is now moderate instead of mild then. Conclusions The left ventricular chamber size is normal. Global left ventricular wall motion and contractility are within normal limits. The estimated ejection fraction is 55-60%. Abnormal left ventricular diastolic function is observed. There is an E to A reversal in the mitral valve flow pattern suggestive of diastolic dysfunction. There is trace to mild aortic regurgitation. There is trace to mild mitral regurgitation. There is trace tricuspid regurgitation. Unable to estimate the right ventricular systolic pressure. 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 Measurements Name Value Normal Range RVIDd (AP) 2D 3 cm (0.9 - 2.6) RVDdMajor (2D) 4.2 cm (2.2 - 4.4) RAd ISD 4CH 4.8 cm (3.4 - 4.9) RA (A4C)W 4 cm (2.9 - 4.6) IVSd (2D) 0.8 cm (0.6 - 1) LVPWd (2D) 0.8 cm (0.6 - 1) LVIDd (2D) 4.3 cm (3.6 - 5.4) LVIDs (2D) 2.6 cm - LV FS (2D) 40 % (25 - 45) Aortic Annulus 2 cm (1.4 - 2.6) Ao root diameter (2D) 3.4 cm (2.1 - 3.5) Ascending Ao 4.4 cm (2.1 - 3.4) Aortic arch 2.4 cm (1.8 - 3.4) LA dimension (AP) 2D 3.4 cm (2.3 - 3.8) LAd ISD 4CH 5.2 cm (2.9 - 5.3) LA ISD 4CH W 4 cm (2.5 - 4.5) Name Value Normal Range LA ESV BP (A/L) index 31 ml/m2 - Name Value Normal Range MV E-wave Vmax 0.7 m/sec - MV deceleration time 261 msec - MV A-wave Vmax 1 m/sec - MV E:A ratio 0.7 ratio - LV septal e' Vmax 0.06 m/sec - LV lateral e' Vmax 0.06 m/sec - LV E:e' septal ratio 11.67 ratio - LV E:e' lateral ratio 11.67 ratio - Name Value Normal Range AV Vmax 1.3 m/sec - AV VTI 26.6 cm - AV peak gradient 6 mmHg - AV mean gradient 3 mmHg - LVOT Vmax 1.1 m/sec - LVOT VTI 22.7 cm - LVOT peak gradient 5 mmHg - LVOT mean gradient 2 mmHg - SOFÍA Vmax 0.8 m/sec - Name Value Normal Range IVC diameter 1.9 cm - Name Value Normal Range PV Vmax 0.8 m/sec - PV peak gradient 2 mmHg -
--- NOTE | 2017-11-20 20:11 | PN ---
Subjective Date of Service: 11/20/17 Interval History: Denies chest pain or shortness of breath . denies abd pain ,n/v/d. States that she is feeling well. Patient is confused to place, time and situation. Oriented to name. cooperative with staff. Family History: Unchanged from Admission Social History: Unchanged from Admission Past Medical History: Unchanged from Admission Objective Active Medications: Acetaminophen (Tylenol Tab*) 650 mg PO Q4H PRN PRN Reason: FEVER/PAIN Escitalopram Oxalate (Lexapro (Nf)) 10 mg PO DAILY [facility] Last Admin: 11/20/17 08:33 Dose: 10 mg Heparin Sodium (Porcine) (Heparin Vial(*)) 5,000 units SUBCUT Q8HR [facility] Last Admin: 11/20/17 13:38 Dose: 5,000 units Sodium Chloride (Ns 0.9% 1000 Ml*) 1,000 mls @ 100 mls/hr IV PER RATE [facility] Last Admin: 11/19/17 17:41 Dose: 100 mls/hr Meclizine HCl (Antivert Tab*) 12.5 mg PO BID PRN PRN Reason: DIZZINESS Last Admin: 11/19/17 17:39 Dose: 12.5 mg Multivitamins/Minerals (Theragran/Minerals Tab*) 1 tab PO DAILY [facility] Last Admin: 11/20/17 08:33 Dose: 1 tab Simvastatin (Zocor(Nf)) 10 mg PO DAILY [facility] Last Admin: 11/20/17 08:33 Dose: 10 mg Triamterene/HCTZ (Dyazide Cap*) 1 cap PO EVERY OTHER DAY [facility] Vital Signs - 8 hr 11/20/17 15:14 Temperature 97.8 F Pulse Rate 57 Respiratory 14 Rate Blood Pressure 120/60 (mmHg) O2 Sat by Pulse 98 Oximetry Oxygen Devices in Use Now: None Appearance: elderly female, appears calm sitting in the chair, confused, no acute distress Eyes: No Scleral Icterus Ears/Nose/Mouth/Throat: Mucous Membranes Moist Neck: NL Appearance and Movements; NL JVP, Trachea Midline Respiratory: Symmetrical Chest Expansion and Respiratory Effort, Clear to Auscultation Cardiovascular: NL Sounds; No Murmurs; No JVD, No Edema Abdominal: NL Sounds; No Tenderness; No Distention Extremities: No Edema, No Clubbing, Cyanosis Skin: No Rash or Ulcers Neurological: - - oriented to self only Nutrition: Taking PO's Result Diagrams: 11/20/17 05:15 11/20/17 05:15 Microbiology and Other Data: Microbiology 11/19/17 12:48 Urine Culture - Final Urine No Growth (<1,000 CFU/mL) 11/19/17 11:25 Aerobic Blood Culture - Preliminary Blood Venous No Growth Day 1 Anaerobic Blood Culture - Preliminary No Growth Day 1 11/19/17 10:11 Aerobic Blood Culture - Preliminary Blood Venous No Growth Day 1 Anaerobic Blood Culture - Preliminary No Growth Day 1 Assess/Plan/Problems-Billing Assessment: Ms. Montano is an 87 y.o female that presented to the emergency room after a unwitnessed fall at home. Patient has a history of dementia, HTN, Vertigo and hx of breast CA. admitted for fall vs syncope. - Patient Problems (1) Fall Current Visit: Yes Status: Acute Comment: Unwitnessed fall at home- unsure if event was a syncopal episode or mechanical fall - will monitor on telemetry for arrthymias - echo showed EF of 60%- diasyolic dysfunction - orthostatic - was given IV NS - will repeat in AM- denies dizziness (2) Dementia Current Visit: Yes Status: Acute Code(s): F03.90 - UNSPECIFIED DEMENTIA WITHOUT BEHAVIORAL DISTURBANCE SNOMED Code(s): 59438399 Comment: supportive care - patient is only oreinted to self, she is pleasent and calm, but unable to provide correct answers to questions. Patient would need 24 hour care at home for safety or placement. (3) HTN (hypertension) Current Visit: Yes Status: Acute Code(s): I10 - ESSENTIAL (PRIMARY) HYPERTENSION SNOMED Code(s): 12753611 Comment: Continue dyazide Will continue to monitor for hypotension and adjust medications as needed (4) HLD (hyperlipidemia) Current Visit: Yes Status: Acute Code(s): E78.5 - HYPERLIPIDEMIA, UNSPECIFIED SNOMED Code(s): 23449960 Comment: Continue simvastatin (5) DVT prophylaxis Current Visit: Yes Status: Acute Code(s): XBA7328 - SNOMED Code(s): 132930955 Comment: heparin SubQ (6) Full code status Current Visit: Yes Status: Acute Code(s): Z78.9 - OTHER SPECIFIED HEALTH STATUS SNOMED Code(s): 480993769 Status and Disposition: inpatient needs 24 hour care or placement
[2017-11-21] MEDS: Heparin VIAL(*) 5000 UNITS/ML VIAL (FIVE THOUSAND) SUBCUT SCH ×2 (05:53→15:13)
[2017-11-21 06:41] LABS: ABS Basophils 0 10^3/ul (0-0.2); ABS Eosinophils 0.1 10^3/ul (0-0.6); ABS Monocytes 0.7 10^3/ul (0-0.8); ABS Neutrophils 2.6 10^3/ul (1.5-7.7); ABS Nucleated RBC 0 10^3/ul; Eosinophil % 2.4 % (0-6); Hematocrit 30 % (35-47); Hemoglobin 10.5 g/dl (12.0-16.0); Lymphocyte % 35.7 % (25-47); Mean Corpuscular HGB Conc 35 g/dl (31-36); Mean Corpuscular Hemoglobin 33 pg (27-31); Mean Corpuscular Volume 95 fL (80-97); Mean Platelet Volume 8.1 um3 (7.4-10.4); Nucleated Red Blood Cells % 0.1; Platelet Count 165 10^3/ul (150-450); Red Blood Count 3.14 10^6/ul (4.00-5.40); Red Cell Distribution Width 14 % (10.5-15); White Blood Count 5.5 10^3/ul (3.5-10.8)
[2017-11-21] MEDS ORDERED: Triamterene/HCTZ 37.5-25 MG* CAP PO SCH (09:00)
[2017-11-21] MEDS: CMC:Simvastatin TAB(NF) 10 MG TAB PO SCH (09:13)
[2017-11-21] MEDS: Multivitamins/Minerals TAB PO SCH (09:13)
[2017-11-21] MEDS: CMC:Escitalopram (NF) 10 MG TAB PO SCH (09:13)
[2017-11-21 16:42] VITALS: BP 113/58
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
--- NOTE | 2017-11-22 23:52 | DS ---
DISCHARGE SUMMARY: DATE OF ADMISSION: 11/19/17 DATE OF DISCHARGE: 11/21/17 PRIMARY CARE PROVIDER: Dr. Hernandez. ATTENDING PHYSICIAN WHILE IN THE HOSPITAL: Marcus Lorenz MD * (dictated by Carlyn Mcnulty NP). PRIMARY DIAGNOSIS: Fall. SECONDARY DIAGNOSES: 1. Hypertension. 2. Breast cancer. 3. Psoriasis. 4. Severe dementia. 5. History of mild pancreatitis. STUDIES COMPLETED WHILE IN THE HOSPITAL: 1. She had a CT of the brain on 11/19/17, radiologist impression: No acute intracranial pathology, diffuse involutional changes with chronic small vessel ischemic changes. 2. She had a CT of the cervical spine. Radiologist impression: a. No evidence of traumatic cervical spine injury. b. 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 c. Ankylosis at C5-C6, C6-C7 and likely C7-T1 levels. 3. She had an electrocardiogram, which showed a sinus rhythm at a rate of 65. 4. She had a transthoracic echocardiogram completed on 11/20/17. Conclusion: Left ventricular chamber size is normal. Global left ventricular wall motion and contractility are within normal limits. The estimated ejection fraction is 55% to 60%, abnormal left ventricular diastolic function is observed. There is E to A reversal on the mitral valve flow patterns suggestive of diastolic dysfunction. There is trace to mild aortic regurgitation. There is trace to mild mitral regurgitation. There is trace tricuspid regurgitation, unable to estimate the right ventricular systolic pressure. There is mild dilation of the ascending aorta. ADISCHARGE MEDICATIONS: No new medications. CONTINUED HOME MEDICATIONS: 1. Dyazide 37.5/25 one cap every other day. 2. One multivitamin daily. 3. Lexapro 10 mg p.o. daily. 4. Simvastatin 10 mg p.o. daily. 5. Meclizine 12.5 mg p.o. b.i.d. as needed for dizziness. HISTORY OF PRESENT ILLNESS AND HOSPITAL COURSE: Ms. Montano is an 87-year-old female with a past medical history significant for severe underlying dementia, hypertension, breast cancer, psoriasis, history of mild pancreatitis who presented to the emergency room for a fall versus syncopal episode while the patient was in the bathroom. According to her aide, the niece, placed the patient on the toilet and was giving her privacy, went to the kitchen to make breakfast, heard a loud bang, called to the patient immediately and the patient immediately responded with no. She called to the patient again and went to see the patient and found her on the floor. It is unclear if the patient tried to stand up and lost her balance and fell or had a syncopal episode and fell, but given her immediate response when called to after hearing the bang, it is unlikely that she had a syncopal episode. It is reported that the patient has care during the daytime hours until approximately 7 p.m. at night and then she is left home alone. The patient is unable to make any decisions or complete any task by herself. While in the emergency room, there was no reported fever, there was no cough or congestion. There was no shortness of breath. Due to the concern of her fall, we were asked by the emergency room to evaluate her for possible syncopal versus mechanical fall and the concern that she may have urinary tract infection. While in the hospital, she was monitored on telemetry. The urine showed no growth in the urine culture. The patient initially had orthostatic hypotension. She was given IV fluids and rehydration. Repeat orthostatic vital signs were within normal limits. At this time, the patient is stable for discharge home. It is our recommendation that she have 24-hour care given her severe underlying dementia. The brother has been advised of the risk of not having 24-hour care including a fall with serious injury, a house fire and unable to leave the house due to not knowing how to leave, leaving the house and getting lost versus getting hit by a car. The brother and niece were advised of all these risks and continue to want to take the patient home as the brother states that they have been doing fine at home. They have had no incidents and she is home alone at night by herself. He feels that we cannot live with by the "what if" and continues to request to take the patient to her home with care until 7 p.m. at night. Given that the patient is medically stable and the brother is willing to take the patient home and has been advised of the risk of her living alone, she will be discharged. The patient is medically stable for discharge home. Vital Signs: Temperature 99.5, pulse was 67, respirations 20, O2 saturation 97%, blood pressure was 113/ 58. DISCHARGE PLAN: Ms. Montano will be discharged home with her brother. Activity as tolerated. She should continue on a heart healthy low sodium diet. 1. In regards to syncope versus mechanical fall: I would recommend that the patient have 24-hour care at home as she has severe underlying dementia and unable to make decisions by herself. She does pose to have a safety risk in the event her house should catch on fire or she was able to get outside, she could possibly be hit by a car or get lost and be unable to return home. She could also fall and have serious injury and not be able to call for help. Again , all these risks were discussed with the brother, who verbalized understanding. I do recommend that the patient have Adult Protective Service consult for safety. The brother was also advised of this. The patient did initially have orthostatic hypotension. She received IV hydration and orthostatic hypotension resolved. 2. Severe underlying dementia: I would recommend 24-hour care at home or in assisted living center as she is unable to function without assistance and is severely confused. 3. Hypertension: She should continue on her home medications. 4. She should follow up with her primary care provider in 4 to 7 days. 5. The family was instructed to return to the emergency room with any further syncopal episodes, chest pain or shortness of breath or any other concerning symptoms. This is a summarization of her hospitalization. For further details, please see the entire medical record. TIME SPENT: Time spent on this discharge was approximately 60 minutes, greater than half that time was spent with the patient discussing discharge plans and instructions. CONDITION ON DISCHARGE: Stable. CARLYN MCNULTY, WILLIE [id number]/[facility] #: [id number] ARABELLA
--- NOTE | 2017-11-24 06:35 | ED ---
Atul Poe Tariq, scribed for Burt Kelly MD on 11/19/17 at 1017 . Complex/Multi-Sys Presentation - HPI Summary HPI Summary: A 87 y/o female BROOKE presents to ED c/o incontinence of bowel and bladder. As per triage, "pt fell in bathroom at home today...has had multiple episodes of vomiting". As per supervisor home restoration service, pt lives alone and she fell down when she was using the bathroom. She was sitting on the toilet and fell off suddenly around 08. No pain was found after fall however she feels very uncomfortable. The supervisor home restoration service noted that she has bruises on her left leg and appears she does not want to straighten that leg. The supervisor home restoration service is not sure about urination or bowel movement. She did note however, that pt has SOB after short distance walks for a about a month. Pt is assisted walking and has severe dementia. Pt was taken to doctor last week because she had blood in the toilet without a bowel movement. On Thursday, she was energetic and drank lots of fluids, however on Thursday and Thursday (1-2 days ago) she was not doing well and had trouble walking. Currently on Bactrim antibiotic. Has PCP. - History Of Current Complaint Chief Complaint: EDNauseaVomitDiarrh Time Seen by Provider: 11/19/17 09:13 Hx Obtained From: Patient Onset/Duration: Sudden Onset, Lasting Weeks - SOB with short distance walks Severity Currently: None Associated Signs And Symptoms: Positive: Weakness, SOB, Vomiting, Melena - Allergies/Home Medications Allergies/Adverse Reactions: Allergies Allergy/AdvReac Type Severity Reaction Status Date / Time No Known Allergies Allergy Verified 09/07/16 17:43 Home Medications: Home Medications Escitalopram (NF) [Lexapro 10 mg (NF)] 10 mg PO DAILY 11/19/17 [History Confirmed 11/19/17] Meclizine TAB* [Antivert 12.5 TAB*] 12.5 mg PO BID PRN 11/19/17 [History Confirmed 11/19/17] Multivitamins/Minerals TAB* [Theragran/minerals TAB*] 1 tab PO DAILY 11/19/17 [ History Confirmed 11/19/17] Simvastatin TAB(NF) [Zocor(NF)] 10 mg PO DAILY 11/19/17 [History Confirmed 11/19] Triamterene/HCTZ 37.5-25 MG* [Dyazide CAP*] 1 cap PO EVERY OTHER DAY 11/19/17 [ History Confirmed 11/19/17] PMH/Surg Hx/FS Hx/Imm Hx Cardiovascular History: Reports: Hx Hypertension Neurological History: Reports: Hx Dementia - Cancer History Cancer Type, Location and Year: Breast CA Lt breast Infectious Disease History: No Infectious Disease History: Denies: Traveled Outside the [place] in Last 30 Days - Family History Known Family History: Positive: Cardiac Disease - Coronary Artery Disease Family History: No family history of breast cancer. - Social History Alcohol Use: None Substance Use Type: Reports: None Smoking Status (MU): Former Smoker Review of Systems Negative: Fever Negative: Erythema Negative: Sore Throat Negative: Chest Pain Positive: Shortness Of Breath. Negative: Cough Positive: Vomiting, Other - POSITIVE: incontinence of bowel. Negative: Abdominal Pain, Nausea Positive: incontinence. Negative: dysuria, hematuria Negative: Myalgia, Edema Positive: Bruising - left leg, Other - POSITIVE: Abrasions on left leg. Negative: Rash Neurological: Other - NEGATIVE: Dizziness All Other Systems Reviewed And Are Negative: Yes Physical Exam - Summary Physical Exam Summary: Constitutional: Well-developed, Well-nourished, Alert. (-) Distressed Skin: Abrasions and bruises on left side. HENT: Scalp hematoma on left side. Eyes: Conjunctiva normal Neck: Musculoskeletal ROM normal neck. (-) JVD, (-) Stridor, (-) Tracheal deviation Cardio: Rhythm regular, rate normal, Heart sounds normal; Intact distal pulses; The pedal pulses are 2+ and symmetric. Radial pulses are 2+ and symmetric. (-) Murmur Pulmonary/Chest wall: Effort normal. (-) Respiratory distress, (-) Wheezes, (-) Rales Abd: Soft, (-), epigastric tenderness, (-) Distension, (-) Guarding, (-) Rebound Musculoskeletal: (-) Edema Lymph: (-) Cervical adenopathy Neuro: Alert, Oriented x3 Psych: Mood and affect Normal GCS: 15 Triage Information Reviewed: Yes Vital Signs On Initial Exam: Initial Vitals Temp Pulse Resp BP Pulse Ox 97.2 F 88 16 151/79 97 07/05/18 09:19 11/19/17 09:19 11/19/17 09:19 11/19/17 09:19 11/19/17 09:19 Vital Signs Reviewed: Yes Diagnostics - Vital Signs Vital Signs Temp Pulse Resp BP Pulse Ox 11/19/17 09:51 69 161/74 94 11/19/17 09:22 67 151/79 98 11/19/17 09:19 97.2 F 73 16 151/79 96 - Laboratory Result Diagrams: 11/19/17 10:11 11/19/17 10:11 Lab Statement: Any lab studies that have been ordered have been reviewed, and results considered in the medical decision making process. - Radiology CXR Radiology Interpretation Completed By: Radiologist - NO ACTIVE CARDIOPULMONARY DISEASE. ED PHYSICIAN REVIEWED THIS RADIOLOGY REPORT. - CT CERVICAL SPINE CT CT Interpretation Completed By: Radiologist - No CT evidence for traumatic cervical spine injury. 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 Ankylosis at C5-C6, C6-C7, and likely C7-T1 levels. ED PHYSICIAN REVIEWED THIS RADIOLOGY REPORT. BRAIN CT CT Interpretation Completed By: Radiologist - NO ACUTE INTRACRANIAL PATHOLOGY. DIFFUSE INVOLUTIONAL CHANGE WITH CHRONIC SMALL VESSEL ISCHEMIC CHANGES. ED PHYSICIAN REVIEWED THIS RADIOLOGY REPORT. - EKG 1540 Cardiac Rate: NL - 65 BPM EKG Rhythm: Sinus Rhythm EKG Interpretation: Negative for STEMI Re-Evaluation - Re-Evaluation First Eval Re-Evaluation Time: 10:56 Comment: CAREGIVER UNSURE ABOUT FALL SHE WAS NOT PRESENT. DOES NOT KNOW ABOUT LOC. CAREGIVER IS GOING TO FIND OUT. Discharge - Sign-Out/Discharge Documenting (check all that apply): Discharge/Admit/Transfer - ADMIT - Discharge Plan Condition: Stable Disposition: ADMITTED TO [facility] documentation as recorded by the Atul vail Tariq accurately reflects the service I personally performed and the decisions made by me, Burt Kelly MD.
== END 2017-11-21 17:20 | disposition home or self-care (01) ==
LOC: ED 09:03 → MEDTELE 14:50
PROVIDERS: ADMIT Internal Medicine; ATTEND Internal Medicine
DX: S40.212A Abrasion of left shoulder, initial encounter (principal); S80.812A Abrasion, left lower leg, initial encounter; W18.11XA Fall from or off toilet without subsequent striking against object, initial encounter; Y92.9 Unspecified place or not applicable; F03.90 Unspecified dementia, unspecified severity, without behavioral disturbance, psychotic disturbance, mood disturbance, and anxiety; I10 Essential (primary) hypertension; E78.5 Hyperlipidemia, unspecified; Z85.3 Personal history of malignant neoplasm of breast; L40.9 Psoriasis, unspecified; K85.90 Acute pancreatitis without necrosis or infection, unspecified; Z79.899 Other long term (current) drug therapy; Z87.891 Personal history of nicotine dependence; I49.40 Unspecified premature depolarization
CPT/HCPCS: 36415; 70450; 71045; 72125; 80048; 80053; 81003; 81015; 83605; 83690; 84484; 85025; 85060; 85610; 85730; 87040; 87086; 93005; 93306; 96361; 96365; 96372; 99285; A9270-GY; G0378; G8978-GP-CK; G8979-GP-CK; G8980-GP-CK; J0696; J1644

== ENCOUNTER 2018-04-03 17:32 | Inpatient (IN) | payer MEDICARE, MEDICAID ==
[2018-04-03] MEDS ORDERED: NS 0.9% 1000 ML* 1,000 ML IV ONE (17:33)
[2018-04-03] MEDS ORDERED: Alteplase* 100 MG VIAL ONE (17:39)
[2018-04-03] MEDS ORDERED: Alteplase* 100 MG VIAL IV ONE ×2 (17:52)
--- NOTE | 2018-04-03 17:57 | ED ---
Neurological HPI - HPI Summary HPI Summary: Level 5 caveat due to pt altered mental staus and dementia. Pt is 87 y/o F brought in by EMS due to possible stroke. Caregiver Aparna was with her at the time of onset. Aparna informs us that pt was sitting in a rocking chair and had been talking directly prior to onset of symptoms. Pt then tried to say a word and was unable to. Caregiver at this point noted that right side of her face started to look droopy. She then placed a call to 911 at 16:43. While caregiver was on the phone with 911, pt began vomiting green bile and was still unable to speak. Last blood pressure taken on ambulance was 141/97 and glucose was 139. Ken Jauregui in the ER was called at 17:26 saying that pt will be arriving in [address] John was at pts beside upon arrival at 17:31. Pt not on any blood thinners. PMHx of severe dementia per caregiver. PMHx denies prior stroke per caregiver. Pt lives alone and has a niece that comes in the morning to care for pt, and has the caregiver, who has known pt for 3 years come in the afternoon to give her dinner and put her to bed. Pt is normally able to walk with a walker, recognizes caregiver, calls her "honey", is able to communicate her needs and have conversations, is able to feed herself. Pt is on anti-HTN meds, atorvastatin, does not take aspirin. - History of Current Complaint Stated Complaint: KEN DARIO Time Seen by Provider: 04/03/18 17:33 Last Known Well Date: 16:40 on 04/03/18 Hx Obtained From: Family/Geothermal Operations Engineer - [place], EMS Hx From Patient Unobtainable Due To: Altered Mental Status Onset/Duration: Sudden Onset, Started minutes ago Timing: Constant Onset Severity: Severe Current Severity: Severe Number of Seizures: 0 Neurological Deficit Location: Facial, RUE, RLE Pain Intensity: 0 Pain Scale Used: 0-10 Numeric Character: Motor Weakness, Impaired Speech Aggravating: Nothing Alleviating: Nothing Associated Signs and Symptoms: Positive: Weakness - right UE and right LE, Impaired Speech, Nausea/Vomiting - green bile x 1 TPA Considered: Yes - given, no contraindication, per Dr. Gan - Additional Pertinent History Primary Care Physician: [id number] - Allergy/Home Medications Allergies/Adverse Reactions: Allergies Allergy/AdvReac Type Severity Reaction Status Date / Time No Known Allergies Allergy Verified 09/07/16 17:43 PMH/Surg Hx/FS Hx/Imm Hx Previously Healthy: No Cardiovascular History: Reports: Hx Hypercholesterolemia, Hx Hypertension Sensory History: Denies: Hx Contacts or Glasses, Hx Hearing Aid Opthamlomology History: Denies: Hx Contacts or Glasses Neurological History: Reports: Hx Dementia - Cancer History Cancer Type, Location and Year: Breast CA Lt breast Infectious Disease History: Denies: Traveled Outside the [place] in Last 30 Days - Family History Known Family History: Positive: Cardiac Disease - Coronary Artery Disease Family History: No family history of breast cancer. - Social History Lives: Alone Alcohol Use: None Substance Use Type: Reports: None Smoking Status (MU): Former Smoker - Additional Comments History Additional Comments: Complete PMHx and FHx unobtainable due to level 5 caveat of altered mental status and dementia. Review of Systems - ROS Summary Review of Systems Summary: Complete ROS unobtainable due to level 5 caveat of altered mental status and dementia. Positive: Vomiting - x1 green bile at home All Other Systems Reviewed And Are Negative: No Physical Exam - Summary Physical Exam Summary: Complete PE unobtainable due to level 5 caveat of altered mental status and dementia. Triage Information Reviewed: Yes Vital Signs Reviewed: Yes Completion Of Physical Exam Limited Due To: Level 5 - dementia, altered mental status Appearance: Positive: No Pain Distress, Well-Nourished, Ill-Appearing Skin: Positive: Warm, Skin Color Reflects Adequate Perfusion, Dry Head/Face: Positive: Other - right facial droop, no signs of trauma Eyes: Positive: EOMI, HODAN, Conjunctiva Clear ENT: Positive: Other - no trauma in mouth Neck: Positive: Supple, Nontender, No Lymphadenopathy Respiratory/Lung Sounds: Positive: Clear to Auscultation, Breath Sounds Present Cardiovascular: Positive: RRR, Pulses are Symmetrical in both Upper and Lower Extremities, S1, S2 Abdomen Description: Positive: Nontender, No Organomegaly, Soft Bowel Sounds: Positive: Present Musculoskeletal: Positive: Other - does not lift right arm, can lift left arm. Does not lift bilat legs, can bend bilat knees, moves both feet. Neurological: Positive: Facial Droop - right, Focal Deficit @ - right (see NIH) , Slurred Speech - awake, cooperates with exam at times, smiles, Dysarthric Aphasia Psychiatric: Positive: Other - smiles when asked, cooperates with exam for some tasks - [place] Coma Scale Best Eye Response: 4 - Spontaneous Best Motor Response: 6 - Obeys Commands - at times Best Verbal Response: 4 - Confused Coma Scale Total: 14 Diagnostics - Laboratory Result Diagrams: 04/03/18 18:09 04/03/18 18:09 Lab Statement: Any lab studies that have been ordered have been reviewed, and results considered in the medical decision making process. - CT brain CT Interpretation Completed By: Radiologist Summary of CT Findings: small vessel disease, no hemorrhage, discussed with Dr. Higuera CTA head and neck CT Interpretation Completed By: Radiologist - discussed with Dr. Higuera, report reviewed. 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 70% stenosis right ICA, 50% stenosis left ICA. - EKG 1802 Cardiac Rate: NL - 83 bpm EKG Rhythm: Sinus Rhythm ST Segment: Non-Specific Ectopy: PVCs Summary of EKG Findings: EKG taken at 1802 shows sinus rhythm at 83 bpm, normal AVCT, prolonged IVCT, LBBB, normal QTc, left axis 28, positive ectopy PVCs. NIH Scale - NIH Scale Level of Consciousness: Alert/Keenly Responsive Ask Patient the Month and His/Her Age: Neither Correct/Aphasic Ask Pt to Open/Close Eyes and Commercial Airline Pilot/Release Non-Paretic Hand: Neither Correctly Best Gaze (Only Horizontal Eye Movement): Normal Visual Field Testing: No Visual Loss Facial Paresis-Pt to Smile & Close Eyes or Grimace Symmetry: Minor Paralysis Motor Function - Right Arm: No Effort Against [place] Motor Function - Left Arm: Effort Against [place] Motor Function - Right Leg: No Effort Against [place] Motor Function - Left Leg: Effort Against [place] Limb Ataxia-Must be out of Proportion to Weakness Present: Absent Sensory (Use Pinprick to Test Arms/Legs/Trunk/Face): Pinprick Less on Affected Best Language (Describe Picture, Name Items): Some Loss Dysarthria (Read Several Words): Slurs Some Words Extinction and Inattention: Inattention Total Score: 19 Re-Evaluation - Re-Evaluation First Eval Re-Evaluation Time: 17:35 - continuous care until [address] Matt agrees to admit [facility] ICU Change: Improved Comment: continuous eval and pt care from arrival and return from CT through to telestroke with Dr. Danielson. Slight improvement in right hand, slightly director of transportation monitor cords, even before tPA. Slight improvement right facial droop after tPA infusing. See course for times. Course/Dx - Course Course Of Treatment: Pt is 87 y/o F brought in by EMS due to possible stroke. Caregiver Aparna placed a call to 911 at 16:43 due to pt not being able to speak and drooping of face. While caregiver was on the phone with 911, pt began vomiting green bile and was still unable to speak. Last blood pressure taken on ambulance was 141/97 and glucose was 139. Pt not on any blood thinners. PMHx of severe dementia per caregiver. PMHx denies prior stroke per caregiver. Ken Jauregui in the ER was called at 17:26 saying that pt will be arriving in [address] John was at pts beside at 17:31. Pt not on any blood thinners. PMHx of severe dementia per caregiver. PMHx denies prior stroke per caregiver. Pt on way to CT at 17:34. CT brain and CTA head and neck ordered for NIH scale 11. [employer] requested for NIH score 11, possible LVO, helicopters not flying. Pt is in 3 hour window for tPA, nurses pull tPA, begin mixing. Call to [facility] transfer center began at 18:02, will be speaking to Dr. Peacock. Spoke with Dr. Higuera at 18:15, CT brain negative. Connected with [facility] at 18:22, Dr. Peacock by phone. She does not have images or telestroke capability. Telestroke initiated at 18:[address] Danielson and he states it is a doubtful LVO at 18:35, concurs with tPA. tPA started. Telestroke concluded at 18:40. EKG taken at 1802 shows sinus rhythm at 83 bpm, normal AVCT, prlonged IVCT, LBBB, normal QTc, left axis 28, positive ectopy PVCs. 1855:Dr. John spoke with pt' s brother, Carlos Enrique, pt's next of kin, 91 yo, alert and lives independently per Aparna (caregiver). Brother updated on pt's condition, and agrees with care, states he "wants us to do everything for [place]", wants pt to be a full code. Nurse, Linda, witnesses phone call with brother on speaker phone. Dr Lino called at 19:13pm and discussed pt's care and imaging findings, determined pt is not an LVO/endovascular retrieval candidate. Pt does not need transfer to [facility] at this time. Discussed with Dr. Matt at 19:17 and he accepts pt for admission to ICU for post tPA care and continued stroke care. 20:15 Pt's caregiver Aparna remains with pt, and voices understanding. Pt is alert. No change in neuro status. BP is controlled. Slight improvement in facial droop. tPA infusion complete, no bleeding noted. Admit [facility] ICU. Care to Dr. Matt, 2030 04/03/18. - Differential Dx Differential Diagnoses Neuro: Positive: Cerebrovascular Accident, Hemorrhage, Transient Ischemic Attack - Diagnoses Provider Diagnoses: Acute ischemic stroke, Received intravenous tissue plasminogen activator (tPA) in emergency department During the Visit The Following Alert/Code Occurred: Code Cao - Physician Notifications Discussed Care Of Patient With: Jayme Matt - admit [facility] ICU post tPA Time Discussed With Above Provider: 19:17 - see course for [facility] stroke consult and [facility] transfer paoli contact. Instructed by Provider To: Admit As Inpatient - Critical Care Time Critical Care Time: 30-74 min - 60 minutes Discharge - Sign-Out/Discharge Documenting (check all that apply): Patient Departure - admit - Discharge Plan Condition: Stable Disposition: ADMITTED TO [facility] - Billing Disposition and Condition Condition: STABLE Disposition: Admitted to [facility] - Attestation Statements Document Initiated by Scribe: Yes Documenting Scribe: Tri Fonseca Provider For Whom Scribe is Documenting (Include Credential): Dr. Rama John MD Scribe Attestation: Tri Poe scribed for Dr. Rama John MD on 04/03/18 at 2310. Scribe Documentation Reviewed: Yes Provider Attestation: The documentation as recorded by the scribeTri accurately reflects the service I personally performed and the decisions made by me, Dr. Rama John MD
[2018-04-03] MEDS ORDERED: Iodixanol* (CONTRAST) 320 MG/ML 100 ML SDV IV ONE (18:01)
[2018-04-03 18:18] LABS: ABS Basophils 0 10^3/ul (0-0.2); ABS Eosinophils 0.1 10^3/ul (0-0.6); ABS Lymphocytes 1.6 10^3/ul (1.0-4.8); ABS Monocytes 0.7 10^3/ul (0-0.8); ABS Neutrophils 4.7 10^3/ul (1.5-7.7); ABS Nucleated RBC 0 10^3/ul; Eosinophil % 1.4 % (0-6); Hematocrit 33 % (35-47); Hemoglobin 11.1 g/dl (12.0-16.0); Lymphocyte % 22.2 % (25-47); Mean Corpuscular HGB Conc 34 g/dl (31-36); Mean Corpuscular Hemoglobin 32 pg (27-31); Mean Corpuscular Volume 93 fL (80-97); Mean Platelet Volume 8.1 fL (7.4-10.4); Nucleated Red Blood Cells % 0; Platelet Count 272 10^3/ul (150-450); Red Blood Count 3.49 10^6/ul (4.00-5.40); Red Cell Distribution Width 15 % (10.5-15); White Blood Count 7.1 10^3/ul (3.5-10.8)
[2018-04-03 18:33] LABS: Albumin 3.4 g/dL (3.2-5.2); Albumin/Globulin Ratio 0.9 (1-3); BUN/Creatinine Ratio 25.8 (8-20); Calcium 9.9 mg/dL (8.6-10.3); EGFR Non-African American 39.4 (>60); Globulin 3.8 g/dL (2-4); HDL Cholesterol 36.4 mg/dL; Potassium 3.5 mmol/L (3.5-5.0); Total Bilirubin 0.6 mg/dL (0.2-1.0); Total Protein 7.2 g/dL (6.4-8.9)
[2018-04-03 18:35] LABS: Activated Partial Thrombo Time 25.1 seconds (26.0-36.3)
--- NOTE | 2018-04-04 02:22 | HP ---
CC: Dr. Vanesa Hernandez; Dr. Powell HISTORY AND PHYSICAL: DATE OF ADMISSION: 04/03/18 CHIEF COMPLAINT: Stroke. HISTORY OF PRESENT ILLNESS: Ms. Montano is an 87-year-old woman with dementia, who was in her usual state of health until around 4:45 this afternoon. She was seated with her aid talking about something, which she suddenly had expressive aphasia and facial droop. The aide reports right facial droop. The patient also had reported right-sided weakness. The aide appropriately activated 911. The patient was called as a code dueñas while still in the ambulance. She was noted to have vomiting during the transportation from the home to the hospital. She had after this evaluation had no speech output at all. In the ER, she had a CT scan and was evaluated for tPA candidate with discussion between Dr. John and Dr. Danielson in Home. There was also discussion of whether she was a clot retrieval candidate with neurosurgeon at [facility]. It was decided by Dr. Danielson that the patient would have tPA and this was given by Dr. John at around 1740. Since the tPA, the patient has been speaking intermittently. She has had some bleeding from her nose and mouth and gums, so tPA was given as well. The patient has been coughing as well. The patient cannot give any additional history due to her baseline dementia and her potential aphasia. PAST MEDICAL HISTORY: Includes hyperlipidemia, hypertension, depression, history of breast cancer, severe dementia Alzheimer's type, history of pancreatitis. PAST SURGICAL HISTORY: Left breast lumpectomy and ORIF in the left hip. MEDICATIONS ON ADMISSION: 1. Meclizine 12.5 mg t.i.d. as needed for dizziness. 2. Lexapro 10 mg p.o. daily. 3. Multivitamin 1 tab daily. 4. Simvastatin 10 mg p.o. q.h.s. 5. Dyazide 37.5/25 one tab p.o. q.a.m. ALLERGIES: None. FAMILY HISTORY: Unknown. SOCIAL HISTORY: She is retired, she is . She has no children. Her brother, Carlos Enrique, is her surrogate decision maker. She used to smoke in the past. No alcohol or drug use. REVIEW OF SYSTEMS: The patient cannot complete her review of systems due to expressive aphasia and dementia. PHYSICAL EXAMINATION GENERAL: She is alert, in no acute distress, initially developed some respiratory distress with coughing. VITAL SIGNS: Temperature is 36.6, pulse 78, respirations 17, blood pressure is 152/90, oxygen saturation 92%. HEENT: Head is normocephalic, atraumatic. Sclerae anicteric. Pupils are equal , round, reactive to light and accommodation. Oropharynx is moist. She has bleeding in her gums and blood trickling from her nose. NECK: No adenopathy. No carotid bruit. LUNGS: There are rales at the right base. Left lung field is clear. HEART: Regular rate and rhythm. No murmurs or gallops. ABDOMEN: Soft, nontender. Positive bowel sounds. EXTREMITIES: No peripheral edema. Dorsalis pedis pulses are absent bilaterally. NEUROLOGIC: She moves all 4 extremities spontaneously, but does not follow commands well. She did wiggle both her feet and gripped my fingers with her left hand to command. She does not have flaccid paralysis in the extremity. If she positioned her arms outstretched, they slowly go back to her side. She had a positive gag reflex. She does answer some questions appropriately, other time she does not answer. There is no obvious dysarthria or word findings difficulty. She is awake and alert and we cannot assess any orientation. LABORATORY DATA: Sodium 138, potassium 3.5, chloride 101, bicarb 31, BUN 33, creatinine 1.28, calcium 9.9, albumin 3.4, AST 16, ALT 9, lactic acid 1.3, troponin 0.01. INR 1.0. PTT 25.1. White count 7.1, hemoglobin 11.1, hematocrit 33%, platelets 272. Cholesterol 166, LDL 102, HDL 36. EKG is pending. Chest x-ray is negative for infiltrates or effusions. Repeat chest x- ray after hypoxia and cough developed was also negative for infiltrates. CT of the brain shows involutional changes, no ischemia or bleeding. CT angiogram of the neck shows right MCA occlusion in 1 of 2 branches, but the left MCA appears patent with carotid disease as well bilateral. ASSESSMENT AND PLAN: An 87-year-old woman with acute stroke, and confusing localization with the discordance between the CTA findings of right MCA occlusion and patient's symptoms, suggesting left hemisphere MCA distribution and stroke in that area would also cause right-sided weakness. In any case, the patient had tPA, will be monitored in the intensive care unit for complications of this. She will have neuro checks frequently and we will monitor further risk given the risk of hemorrhagic transformation of a large vessel stroke at her age. We will repeat a CT in 24 hours or sooner if she has anemia symptoms. I have discussed the case with Dr. Powell and she will see the patient for consultation tomorrow. The patient has hemoptysis, but is not bleeding from any other IV sites. There is concern that she has aspiration of blood or other sputum given her hypoxia and cough. She will have dysphagia screening and she will be n.p.o. unless she can pass that. I will start her on antibiotics if she has fever. We are also trying to get a urinalysis to assess for urinary tract infection, but she has been incontinent and we cannot put a Iraheta at this time because she has already had tPA. For her hypertension, I will hold her diuretic as her creatinine is elevated and her potassium is in the low and if her blood pressure remains elevated, we will give her Norvasc or other calcium channel chata, which is better utilized in ischemic stroke. Code status is full, this was discussed between Dr. John and the patient's brother. The patient's DVT risk is very high. She will have sequential compression devices in first 24 hours and should have subcutaneous heparin after that. [id number]/[facility] #: [id number] ARABELLA
[2018-04-04 09:22] LABS: ABS Basophils 0 10^3/ul (0-0.2); ABS Eosinophils 0.1 10^3/ul (0-0.6); ABS Lymphocytes 0.3 10^3/ul (1.0-4.8); ABS Monocytes 0.6 10^3/ul (0-0.8); ABS Nucleated RBC 0 10^3/ul; Hematocrit 29 % (35-47); Hemoglobin 9.9 g/dl (12.0-16.0); Lymphocyte % 1.9 % (25-47); Mean Corpuscular HGB Conc 34 g/dl (31-36); Mean Corpuscular Hemoglobin 32 pg (27-31); Mean Corpuscular Volume 93 fL (80-97); Mean Platelet Volume 8.5 fL (7.4-10.4); Nucleated Red Blood Cells % 0; Platelet Count 259 10^3/ul (150-450); Red Blood Count 3.15 10^6/ul (4.00-5.40); Red Cell Distribution Width 15 % (10.5-15)
[2018-04-04 09:32] LABS: Calcium 9.1 mg/dL (8.6-10.3); EGFR Non-African American 45.4 (>60); Magnesium 1.6 mg/dL (1.9-2.7); Potassium 3.3 mmol/L (3.5-5.0)
[2018-04-04] MEDS: CMCS:Simvastatin TAB(NF) 10 MG TAB PO SCH (09:33)
[2018-04-04] MEDS: Citalopram TAB* 20 MG PO SCH (09:33)
[2018-04-04] MEDS ORDERED: Magnesium Sulfate 2 GM IV* 2 GM/50 ML BAG IVPB ONE (10:21)
--- NOTE | 2018-04-04 10:25 | PN ---
Subjective Interval History: Intermittently Verbal, only intermittently following commands (left hand squeeze ) febrile to 100.4 blood cultures drawn. zosyn for potential aspriation pna started. protonix Iv started. CT head at 1700 -> stable had urinary retention, unable to place [place] for first 24 hours (given TPA, discussed with Dr. Powell) urinated later. Brother Carlos Enrique later stopped by, MOLST filled out -> DNR/DNI Objective Active Medications: Aspirin (Aspirin 81 Mg Chew Tab*) 81 mg PO DAILY [facility] Citalopram Hydrobromide (Celexa Tab*) 20 mg PO DAILY [facility] Last Admin: 04/04/18 09:33 Dose: Not Given Enoxaparin Sodium (Lovenox(*)) 30 mg SUBCUT Q24H [facility] Sodium Chloride (Ns 0.9% 1000 Ml*) 1,000 mls @ 90 mls/hr IV PER RATE [facility] Stop: 04/05/18 10:14 Magnesium Sulfate (Magnesium Sulfate 2 Gm Iv*) 2 gm in 50 mls @ 50 mls/hr IVPB ONCE ONE Stop: 04/04/18 11:20 Potassium Chloride (Potassium Chloride 20 Meq/100 Ml Ivpremix*) 20 meq in 100 mls @ 50 mls/hr IV Q2H [facility] Stop: 04/04/18 15:59 Pantoprazole Sodium (Protonix Iv*) 40 mg IV DAILY [facility] Simvastatin (Zocor(Nf)) 10 mg PO DAILY [facility] Last Admin: 04/04/18 09:33 Dose: Not Given Vital Signs - 8 hr 04/04/18 04/04/18 04/04/18 02:30 02:45 03:00 Temperature Pulse Rate 88 89 86 Respiratory 15 16 17 Rate Blood Pressure 134/83 127/88 125/83 (mmHg) O2 Sat by Pulse 100 100 100 Oximetry 04/04/18 04/04/18 04/04/18 03:01 03:15 03:29 Temperature 98.4 F Pulse Rate 90 92 Respiratory 16 16 Rate Blood Pressure 129/66 (mmHg) O2 Sat by Pulse 100 100 Oximetry 04/04/18 04/04/18 04/04/18 03:30 03:45 04:00 Temperature Pulse Rate 86 92 85 Respiratory 16 16 16 Rate Blood Pressure 133/75 124/68 123/99 (mmHg) O2 Sat by Pulse 99 100 99 Oximetry 18 18 04/04/18 04:01 04:15 04:30 Temperature Pulse Rate 91 82 94 Respiratory 19 16 16 Rate Blood Pressure 140/70 132/75 (mmHg) O2 Sat by Pulse 99 99 98 Oximetry 18 18 18 04:45 05:00 05:01 Temperature Pulse Rate 83 81 70 Respiratory 13 17 17 Rate Blood Pressure 119/84 125/73 (mmHg) O2 Sat by Pulse 94 94 94 Oximetry 04/04/1818 04/04/18 05:15 05:30 05:45 Temperature Pulse Rate 94 86 78 Respiratory 19 18 18 Rate Blood Pressure 121/69 120/66 105/64 (mmHg) O2 Sat by Pulse 93 96 95 Oximetry 04/04/18 04/04/18 04/04/18 06:00 06:01 06:16 Temperature Pulse Rate 95 94 88 Respiratory 18 18 16 Rate Blood Pressure 117/71 115/85 (mmHg) O2 Sat by Pulse 96 96 93 Oximetry 04/04/18 04/04/18 04/04/18 06:30 06:46 07:00 Temperature Pulse Rate 84 70 87 Respiratory 18 18 18 Rate Blood Pressure 107/70 116/67 114/75 (mmHg) O2 Sat by Pulse 96 97 98 Oximetry 04/04/18 04/04/18 04/04/18 07:01 07:15 07:30 Temperature Pulse Rate 81 79 87 Respiratory 15 18 18 Rate Blood Pressure 124/65 118/68 (mmHg) O2 Sat by Pulse 96 96 96 Oximetry 04/04/18 04/04/18 04/04/18 07:41 07:45 08:00 Temperature 100.4 F Pulse Rate 87 84 Respiratory 17 17 Rate Blood Pressure 113/64 107/63 (mmHg) O2 Sat by Pulse 96 96 Oximetry 04/04/1818 04/04/18 08:01 08:15 08:30 Temperature Pulse Rate 72 94 87 Respiratory 18 18 19 Rate Blood Pressure 128/72 98/70 (mmHg) O2 Sat by Pulse 95 96 96 Oximetry 04/04/1818 04/04/18 09:00 09:01 09:15 Temperature Pulse Rate 74 86 85 Respiratory 18 18 17 Rate Blood Pressure 123/54 116/69 (mmHg) O2 Sat by Pulse 96 96 96 Oximetry 04/04/18 04/04/18 04/04/18 09:30 10:00 10:01 Temperature Pulse Rate 84 77 68 Respiratory 18 16 16 Rate Blood Pressure 118/65 106/68 (mmHg) O2 Sat by Pulse 96 96 97 Oximetry Oxygen Devices in Use Now: None Appearance: NAD, intermittently verbal Eyes: No Scleral Icterus, PERRLA Neck: NL Appearance and Movements; NL JVP Respiratory: Symmetrical Chest Expansion and Respiratory Effort, Clear to Auscultation Cardiovascular: NL Sounds; No Murmurs; No JVD, RRR Abdominal: NL Sounds; No Tenderness; No Distention, No Hepatosplenomegaly Lymphatic: No Cervical Adenopathy Extremities: No Edema Skin: No Rash or Ulcers Neurological: - - only intermittently verbal. was able to state name. left newspaper or periodical editor 3/5? left UE very rigid. upperward babinski b/l. could wiggle toes on command later (barely) Result Diagrams: 04/04/18 09:05 04/04/18 09:05 Additional Lab and Data: Laboratory Results - last 24 hr 04/04/18 04/04/18 09:05 09:05 WBC 13.0 H RBC 3.15 L Hgb 9.9 L Hct 29 L MCV 93 MCH 32 H MCHC 34 RDW 15 Plt Count 259 MPV 8.5 Neut % (Auto) 92.0 H Lymph % (Auto) 1.9 L Mcduffie % (Auto) 4.9 Eos % (Auto) 1.0 Baso % (Auto) 0.2 Absolute Neuts (auto) 12.0 H Absolute Lymphs (auto) 0.3 L Absolute Monos (auto) 0.6 Absolute Eos (auto) 0.1 Absolute Basos (auto) 0 Absolute Nucleated RBC 0 Nucleated RBC % 0 Sodium 139 Potassium 3.3 L Chloride 105 Carbon Dioxide 25 Anion Gap 9 BUN 35 H Creatinine 1.13 H Est GFR ( Amer) 55.0 Est GFR (Non-Af Amer) 45.4 BUN/Creatinine Ratio 31.0 H Glucose 110 H Calcium 9.1 Magnesium 1.6 L Microbiology and Other Data: Laboratory Results - last 24 hr 04/04/18 04/04/18 09:05 09:05 WBC 13.0 H RBC 3.15 L Hgb 9.9 L Hct 29 L MCV 93 MCH 32 H MCHC 34 RDW 15 Plt Count 259 MPV 8.5 Neut % (Auto) 92.0 H Lymph % (Auto) 1.9 L Mcduffie % (Auto) 4.9 Eos % (Auto) 1.0 Baso % (Auto) 0.2 Absolute Neuts (auto) 12.0 H Absolute Lymphs (auto) 0.3 L Absolute Monos (auto) 0.6 Absolute Eos (auto) 0.1 Absolute Basos (auto) 0 Absolute Nucleated RBC 0 Nucleated RBC % 0 Sodium 139 Potassium 3.3 L Chloride 105 Carbon Dioxide 25 Anion Gap 9 BUN 35 H Creatinine 1.13 H Est GFR ( Amer) 55.0 Est GFR (Non-Af Amer) 45.4 BUN/Creatinine Ratio 31.0 H Glucose 110 H Calcium 9.1 Magnesium 1.6 L Assess/Plan/Problems-Billing Assessment: - Patient Problems (1) Acute right MCA stroke Current Visit: Yes Status: Acute Code(s): I63.511 - CEREB INFRC D/T UNSP OCCLS OR STENOS OF RIGHT MID CEREB ART SNOMED Code(s): 397100440 Comment: s/p TPA repeat CTH w/o bleed supportive measures speech therapy (failed RN assesement) start rectal tylenol tomorrow appreciate Neurology recs ECHO w/ bubble ordered to rule out embolic source Telemetry - no Afib noted. statin when able to take po again. LDL 102, HDL 36 With severe dementia pre-existing her prognosis is guarded. I have placed a palliative care consult. Baseline per brother was that she could sometimes walk with walker with assistance. Had daytime 7 day a week care previously. (2) DNR (do not resuscitate) Current Visit: Yes Status: Acute Comment: MOLST filled out by brother Carlos Enrique 04/04. DNR/DNI (3) DVT prophylaxis Current Visit: No Status: Acute Code(s): LSJ5823 - SNOMED Code(s): 704279798 Comment: lovenox (4) Dementia Current Visit: No Status: Acute Code(s): F03.90 - UNSPECIFIED DEMENTIA WITHOUT BEHAVIORAL DISTURBANCE SNOMED Code(s): 63028209 Comment: supportive care plan as above. (5) HLD (hyperlipidemia) Current Visit: No Status: Acute Code(s): E78.5 - HYPERLIPIDEMIA, UNSPECIFIED SNOMED Code(s): 71328886 Comment: Continue simvastatin (6) HTN (hypertension) Current Visit: No Status: Acute Code(s): I10 - ESSENTIAL (PRIMARY) HYPERTENSION SNOMED Code(s): 83982393 Comment: permissive HTN. holding triameterine/HCTZ Status and Disposition: medicine inpatient, transfer to floor. Likely will need placement if not hospice. OT/PT ordered.
[2018-04-04] MEDS ORDERED: Ondansetron INJ* 2 MG/ML VIAL IV PRN (10:43)
[2018-04-04] MEDS: Pantoprazole IV* 40 MG IV SCH (10:57)
[2018-04-04] MEDS ORDERED: Zosyn per Pharmacy* NOTE FOLLOW UP SCH (11:00)
[2018-04-04] MEDS ORDERED: Piperacillin/Tazobac ADVAN(*) 3.375 GM in NS 0.9% 100 ML* 100 ML IVPB ONE (11:00)
[2018-04-04] MEDS: KCL 20 MEQ/100 ML IVPREMIX* 20 MEQ/100 ML BAG IV SCH ×2 (11:59→14:28)
[2018-04-04] MEDS: NS 0.9% 1000 ML* 1,000 ML IV SCH (11:59)
[2018-04-04] MEDS: ZOSYN 3.375 GM Q8H per EXTENDED INFUSION IVPB SCH ×4 (15:17→22:44)
--- NOTE | 2018-04-04 15:54 | CONS ---
FOLLOWUP NOTE/CONSULTATION REPORT: DATE OF CONSULT: 04/03/18 HISTORY OF PRESENT ILLNESS: Idalmis Montano is an 87-year-old woman with history of dementia, hypertension, hyperlipidemia, who presented to the emergency room on 04/03/18 with expressive aphasia and right facial droop. She was last noted well at 16:45. She received tPA with Telestroke consult from [facility], working with Dr. John in the ER and Dr. Danielson in [place]. They decided to proceed with tPA at 17:39. This was complicated by gum bleeding. The patient at baseline has dementia. According to the chart, she has a niece that is involved in the mornings and a caregiver in the evenings. There is also reference to adult protective services. She has an elderly brother. None of these relatives were at bedside during today's followup. History was obtained from the chart. She had a CT of the brain which showed significant atrophy and small vessel ischemic disease. This was reviewed directly. She had a CTA which was read as showing right MCA branch occlusions. This film was reviewed directly. Her lipid profile showed a cholesterol 166 and LDL of 102. She is on simvastatin 10 mg at baseline. She is unable to pass swallow test at this time and has not had any since admission. There is no record of her taking aspirin. At baseline, she has a history of dementia described in the chart as advanced Alzheimer's disease. There is also a history of hyperlipidemia, hypertension, depression, breast cancer on the left side and pancreatitis. MEDICATIONS: As an outpatient had included: 1. Meclizine 12.5 mg p.o. t.i.d. as needed for dizziness. 2. Lexapro 10 mg p.o. daily. 3. Multivitamin p.o. daily. 4. Simvastatin 10 mg p.o. q.h.s. 5. Dyazide 37.5/25 one tablet p.o. q.a.m. with no known drug allergies. At this time, she cannot participate in providing any further family history, social history, review of systems. From the chart it appears she is retired, with no children and her brother, Carlos Enrique, is her surrogate decision maker and he is in his 90s. Her medications in hospital now include: 1. Aspirin which is planned to start tomorrow as long as CT is negative at 300 mg per rectum daily. 2. Celexa 20 mg p.o. daily which has not been given. 3. Lovenox which is due to start this evening, which is 24 hours after receiving tPA at 30 mg subcu q.24 hours. 4. Magnesium sulfate 2 g once IV. 5. Zofran 4 mg IV q.6 hours p.r.n. nausea. 6. Protonix 40 mg IV daily. 7. Piperacillin and tazobactam 100 mL once and then followed by pharmacy. 8. Potassium chloride 20 mEq IV q.2 hours 2 bags ordered. 9. Simvastatin 10 mg p.o. daily which she has not been able to be received given lack of p.o. intake. 10. Sodium chloride started this morning at 90 mL/hour IV. ALLERGIES: She has no known drug allergies. PHYSICAL EXAMINATION: On examination, most recent vitals include blood pressure of 106/68 with the blood pressure going as low as 98/70 this morning, she has a pulse of 68 and regular, respiratory rate 16, saturation 97% on room air. There was irregular cardiac rhythm. Her lungs were clear to auscultation. There was decreased breath sounds inferiorly but no crackles. There are no carotid bruits. There was no peripheral edema. She had a small lac with a dressing on in her right kiser. There was no other bruising noted or petechiae. She has pulses in the dorsalis pedis and posterior tibialis at about 1+. She has had positive bowel sounds. She was able to say yes and no, but not necessarily appropriately, and with no other verbal output. Her facial expression appeared to be symmetric. She followed my face from one side to another and blinked to threat. She did not open her mouth to command, so I could not observe her palate or tongue. She did not do any movements to command other than maybe squeeze left hand. There was grasp reflex bilaterally with diffuse paratonia, limited range of movement in the shoulders. Her tone was symmetric between arms and legs. She had bilateral withdrawal to Babinski' s with upgoing toes bilaterally. Her legs withdrew vigorously and equally. Her reflexes were 1+ in the upper extremities, absent in the lower extremities. Further coordination, sensory and gait exam could not be performed. DIAGNOSTIC STUDIES/LAB DATA: Her white count has increased to 13 with 92% neutrophils, hemoglobin/hematocrit have dropped from 11.1 and 33 to 9.9 and 29, respectively. Her metabolic panel showed an elevated BUN and creatinine initially on admission with an elevated BUN and creatinine ratio and elevated glucose this morning. Her potassium was slightly low at 3.3, magnesium low at 1.6. Her BUN was 35, creatinine was 1.13. BUN and creatinine ratio is 31 with the glucose of 110. Her total cholesterol is 166, LDL is 102. Her CT and CTA of the brain were as noted above. She has had repeat chest x- rays which were limited with hypoventilation and subsegmental atelectasis. IMPRESSION: An 87-year-old woman with a history of dementia, hypertension, hyperlipidemia, who presented to the ER with expressive aphasia and right facial droop, last noted well at 1645 with tPA provided, complicated by gum bleeding and findings of some right middle cerebral artery branch occlusions. By history, she had acute onset of focal neurologic symptoms consistent with an ischemic stroke, was treated with tPA. Her current exam is limited by her advanced dementia. At this point, I am not finding any clear focal facial asymmetry. Her language, however, is very limited. We will get a repeat CT tonight at 24 hours after tPA, earlier if there is decline. If she is stable tomorrow, then I would check an MRI of the brain. We will plan to start aspirin tomorrow if there is no bleed on CT. She is on telemetry in the ICU and echo has been ordered. She is on simvastatin for her cholesterol, but cannot take it because of inability to swallow. Depending on workup and clinical course, further increase in dose may be considered. It will be helpful to get further history if there has been any problems with simvastatin at her age. Given symptoms are contralateral to the CTA findings, question is raised if she is left handed, or if she has bilateral representation of speech versus steal phenomenon with collateral flow. Accordingly, normal saline has been started to help with perfusion. She may need higher rate depending on blood pressure; would avoid blood pressure medications unless her blood pressure gets above 180/ 100. Thus far, there are no signs of congestive heart failure. We spoke about starting GI prophylaxis and this has been done. She has speech therapy ordered. Further therapy may need to be ordered based on clinical condition. At this point, she is not at the level being able to participate. She did have vomiting on presentation. Now, she has fever that has gone as high as 100.4 with an elevated white count and left shift. She is high risk for aspiration. Dr. Garcia started Zosyn and is working on source of infection. Given advanced dementia, living alone with help from niece and aide and notes indicating adult protective services was called at some point, ongoing Social Work input will be needed. TIME SPENT: Over 60 minutes was spent in direct patient care. I will be re- rounding to look for family and review CT this evening. Our team will continue to follow with Dr. Brooke taking over in the morning. [id number]/[facility] #: [id number] ARABELLA
[2018-04-04] MEDS: Enoxaparin(*) 30 MG/0.3 ML SYR SUBCUT SCH (20:43)
[2018-04-04] MEDS ORDERED: Enoxaparin(*) 40 MG/0.4 ML SYR SUBCUT SCH (21:00)
[2018-04-05] MEDS: NS 0.9% 1000 ML* 1,000 ML IV SCH (06:11)
[2018-04-05] MEDS: ZOSYN 3.375 GM Q8H per EXTENDED INFUSION IVPB SCH ×4 (07:09→17:19)
[2018-04-05 08:43] LABS: ABS Basophils 0 10^3/ul (0-0.2); ABS Eosinophils 0.5 10^3/ul (0-0.6); ABS Lymphocytes 0.7 10^3/ul (1.0-4.8); ABS Monocytes 0.5 10^3/ul (0-0.8); ABS Neutrophils 5.7 10^3/ul (1.5-7.7); ABS Nucleated RBC 0 10^3/ul; Eosinophil % 6.8 % (0-6); Hematocrit 25 % (35-47); Hemoglobin 8.8 g/dl (12.0-16.0); Lymphocyte % 8.8 % (25-47); Mean Corpuscular HGB Conc 35 g/dl (31-36); Mean Corpuscular Hemoglobin 33 pg (27-31); Mean Corpuscular Volume 94 fL (80-97); Mean Platelet Volume 8.1 fL (7.4-10.4); Nucleated Red Blood Cells % 0; Platelet Count 197 10^3/ul (150-450); Red Blood Count 2.71 10^6/ul (4.00-5.40); Red Cell Distribution Width 15 % (10.5-15); White Blood Count 7.4 10^3/ul (3.5-10.8)
[2018-04-05 09:00] LABS: BUN/Creatinine Ratio 26.2 (8-20); Calcium 7.7 mg/dL (8.6-10.3); EGFR Non-African American 50.6 (>60); Magnesium 1.9 mg/dL (1.9-2.7); Potassium 3.2 mmol/L (3.5-5.0)
[2018-04-05] MEDS ORDERED: Aspirin 81 mg CHEW TAB* 81 MG TAB.CHEW PO SCH (09:00)
[2018-04-05] MEDS ORDERED: Aspirin SUPP* 300 MG PR SCH (09:00)
[2018-04-05] MEDS ORDERED: D5W 1/4 NS 1000 ML BAG* 1,000 ML IV SCH (10:00)
[2018-04-05] MEDS: Citalopram TAB* 20 MG PO SCH (10:34)
[2018-04-05] MEDS: CMCS:Simvastatin TAB(NF) 10 MG TAB PO SCH (10:34)
[2018-04-05] MEDS: Pantoprazole IV* 40 MG IV SCH (10:47)
[2018-04-05] MEDS ORDERED: Magnesium Sulfate 1 GM IV* 1 GM/100 ML BAG IV ONE (15:00)
[2018-04-05] MEDS: KCL 20 MEQ/100 ML IVPREMIX* 20 MEQ/100 ML BAG IV SCH ×2 (15:17→18:33)
--- NOTE | 2018-04-05 17:16 | ECHO ---
Patient: [facility] Rec#: [id number] : 1930 Date: 04/05/2018 Age: 87y Height: 152 cm / 59.8 in Weight: 53 kg / 116.8 lbs Sex: F BSA: 1.48 Room#: [facility] Admit Date#: 04/03/2018 Type: Inpatient Referring: Luis Garcia Reading: Thomas Underwood MD Sheet Catcher: Marisol Coleman RDCS,RDMS CC: Vanesa Kaufman MD Transthoracic Echocardiogram Indication: CVA BP: 140/65 HR: 66 Rhythm: NSR with PVCs Findings History: HTN, breast cancer, former smoker Technical Comments: The study quality is good. Left Ventricle: The left ventricular chamber size is normal. There is a prominent septal knuckle. Global left ventricular wall motion and contractility are within normal limits. There is normal left ventricular systolic function. The estimated ejection fraction is 55-60%. There is an E to A reversal in the mitral valve flow pattern suggestive of diastolic dysfunction. Left Atrium: The left atrium is mildly dilated. Right Ventricle: The right ventricular chamber size and systolic function are within normal limits. Right Atrium: The right atrium is mildly dilated. The bubble study is negative. A patent foramen ovale is not demonstrated with color Doppler and agitated contrast. Aortic Valve: The aortic valve is trileaflet. The aortic valve leaflets are mildly thickened. There is aortic annular calcification. There is trace to mild aortic regurgitation. There is no evidence of aortic stenosis. Mitral Valve: There is mitral annular calcification. The mitral valve leaflets are mildly thickened. There is no evidence of mitral regurgitation. There is no evidence of mitral stenosis. Tricuspid Valve: The tricuspid valve structure is not well visualized. The tricuspid valve leaflets are not thickened. There is no evidence of tricuspid valve regurgitation. Unable to estimate the right ventricular systolic pressure. Pulmonic Valve: The pulmonic valve structure is not well visualized. There is no evidence of pulmonic valve thickening. There is no evidence of pulmonic regurgitation. Pericardium: There is no significant pericardial effusion. Aorta: There is borderline dilatation of the ascending aorta. There is no dilatation of the aortic arch. The aortic root is normal in size. Pulmonary Artery: The main pulmonary artery is not well visualized. Venous: The inferior vena cava appears normal in size. There is an approximate 50% respiratory change in the inferior vena cava dimension. Contrast: Intravenous agitated saline contrast was used to assess intracardiac shunting. Summary: There are no significant changes when compared to the previous study done on 11/20/17 Conclusions Global left ventricular wall motion and contractility are within normal limits. There is normal left ventricular systolic function. The estimated ejection fraction is 55-60%. There is trace to mild aortic regurgitation. There is no evidence of mitral regurgitation. There is no evidence of tricuspid valve regurgitation. There is no significant pericardial effusion. There is borderline dilatation of the ascending aorta. A patent foramen ovale is not demonstrated with color Doppler and agitated contrast. There are no significant changes when compared to the previous study done on 11/20/17 Measurements Name Value Normal Range RVIDd (AP) 2D 2 cm (0.9 - 2.6) RVDdMajor (2D) 2.9 cm (2.2 - 4.4) RAd ISD 4CH 5.8 cm (3.4 - 4.9) RA (A4C)W 3.4 cm (2.9 - 4.6) IVSd (2D) 0.8 cm (0.6 - 1) LVPWd (2D) 1 cm (0.6 - 1) LVIDd (2D) 5 cm (3.6 - 5.4) LVIDs (2D) 3.8 cm - LV FS (2D) 24 % (25 - 45) Aortic Annulus 2 cm (1.4 - 2.6) Ao root diameter (2D) 3.2 cm (2.1 - 3.5) Ascending Ao 3.5 cm (2.1 - 3.4) Aortic arch 3.5 cm (1.8 - 3.4) LA dimension (AP) 2D 2.5 cm (2.3 - 3.8) LAd ISD 4CH 6.1 cm (2.9 - 5.3) LA ISD 4CH W 3.8 cm (2.5 - 4.5) Name Value Normal Range LA ESV BP (A/L) index 40 ml/m2 - Name Value Normal Range MV E-wave Vmax 0.6 m/sec - MV deceleration time 187 msec - MV A-wave Vmax 1.1 m/sec - MV E:A ratio 0.5 ratio - LV septal e' Vmax 0.06 m/sec - LV lateral e' Vmax 0.06 m/sec - LV E:e' septal ratio 10 ratio - LV E:e' lateral ratio 10 ratio - Name Value Normal Range AV Vmax 1.3 m/sec - AV VTI 30 cm - AV peak gradient 7 mmHg - AV mean gradient 3 mmHg - LVOT Vmax 0.9 m/sec - LVOT VTI 17.5 cm - LVOT peak gradient 3 mmHg - LVOT mean gradient 1 mmHg - AR PHT 452 msec - Name Value Normal Range MV Vmax 1.3 m/sec - MV VTI 31.5 cm - MV peak gradient 7 mmHg - MV mean gradient 2 mmHg - MV PHT 76 msec - MVA (PHT) 2.9 cm2 - Name Value Normal Range RAP 8 mmHg - IVC diameter 1.5 cm -
[2018-04-05 18:16] LABS: BUN/Creatinine Ratio 26.4 (8-20); Calcium 8.2 mg/dL (8.6-10.3); EGFR Non-African American 46.9 (>60); Potassium 4.4 mmol/L (3.5-5.0)
[2018-04-05 18:53] LABS: Urine Appearance Clear; Urine Bilirubin Negative (Negative); Urine Blood Negative (Negative); Urine Color Yellow; Urine Glucose Negative (Negative); Urine Ketones Negative (Negative); Urine Nitrite Negative (Negative); Urine Protein Negative (Negative); Urine Specific Gravity 1.028 (1.010-1.030); Urine Urobilinogen Negative (Negative)
--- NOTE | 2018-04-05 19:05 | CONS ---
NEUROLOGY FOLLOWUP NOTE: DATE OF FOLLOWUP: 04/05/18 HOSPITALIST: Luis Garcia MD LOCATION: She is in room 448. CHIEF COMPLAINT: Right-sided weakness. INTERVAL HISTORY: Since yesterday, Idalmis feels "fine." Her brother is present and he gives further history. She lives in her own home and he is there routinely to help. She has aides 08/12. She is able to ambulate perhaps 30 to 40 feet with assist and a walker. She does not have any problems with choking or swallowing. Currently, she denies headache or intestinal problems. She is pleasant and cooperative, but quite demented. MEDICATIONS: Reviewed and she is on: 1. Aspirin 81 mg p.o. daily. 2. Lovenox 30 mg subcutaneous q.24 hours. 3. Celexa 20 mg p.o. daily. 4. Protonix 40 mg IV daily. 5. Zosyn 3.375 q.8 hours. 6. Simvastatin 10 mg p.o. daily. PHYSICAL EXAMINATION: She is awake and alert and well hydrated. Most recent temperature is 97.9, but it was up to 100.6 last night. Blood pressures recently running 136/60s, heart rate in the 60s and regular, respiratory rate is about 15, and oxygen saturation is 98%. Heart tones are distant, but I do not hear any murmurs. Neurological Exam: Eye movements are full. Facial musculature is symmetric. Tongue protrudes in the midline and speech is clear. On motor exam, she has diffuse paratonia. She has ankle contractures at about 90 degrees bilaterally. There is no rest tremor. Handgrip on the right is weaker than the left. There is a paucity of spontaneous speech, but she is able to produce sentences. As I leave the room, she states "it is very nice to meet you." LABORATORY DATA/DIAGNOSTIC STUDIES: Notable for CBC with a drop in hemoglobin to 8.8 this morning, it was 11.1 when she came in. White blood cell count is normal and hematocrit is 25%, down from 33% when she came in. INR and PTT are normal at admission. She has not had a urinalysis yet this admission. Chemistry is notable for sodium up to 149, it was 139 when she came in. Creatinine and BUN are stable. Glucose is normal. Cholesterol on day of admission was 166, LDL 102. Additional data includes a brain CT on admission and again yesterday, interpreted as showing atrophy. I reviewed the studies and I agreed. There are no signs of acute infarction or hemorrhage. CT angiogram of the brain on admission revealed occlusion of 2 branches of the right middle cerebral artery. I reviewed the images and I agreed. There is no large vessel occlusion. There is significant calcific plaque in both internal carotids at the bifurcations with an estimated 70% stenosis on the right and 50% stenosis on the left by Dr. Higuera. IMPRESSION AND PLAN: Impression is that of left hemispheric cerebrovascular event, possibly a transient ischemic attack or possibly a stroke. I put in an order an MRI of the brain to sort that differential out. Etiology in terms of mechanism is unclear, but the lesions in the right hemisphere must be either incidental or could represent bihemispheric embolic phenomena. She was said to have no effort against gravity in the right arm and the right leg by Dr. Hilda John's evaluation in the emergency room prior to tPA. I would normally recommend adding Plavix to her aspirin at least for 30 days, but with her drop in hemoglobin, I am concerned about GI or other bleeding. I would recommend continuing with aspirin for now and getting a urinalysis and checking all stools for occult blood. If there is no active source of bleeding , then I may recommend dual antiplatelet therapy subsequently. An echocardiogram with bubble study is pending. So far, she has apparently only been in sinus rhythm. She is severely impaired at baseline and so, ultimate disposition remains to be determined. I will continue to follow her along with you. [id number]/[facility] #: [id number] HEALTH SYSTEMDidi
--- NOTE | 2018-04-05 22:18 | PN ---
Subjective Date of Service: 04/05/18 Interval History: Hgb downtrending to 8.8 from 9.9 Mental status greatly improved - interactive, following commands, eating soup ( passed Swallow eval with BRAIDING OPERATOR) Brain MRI with 1.4 cm left frontal and central gyrus acute infarction. Na to 149, D51/4NS started with resolution Afebrile, Leukocytosis resolved. ECHO w/o thrombus, no pfo. Carlos Enrique preferring to take patient home with hospice services rather than [facility] ( PT rec) Objective Active Medications: Aspirin (Asa Supp*) 300 mg MO DAILY [facility] Last Admin: 04/05/18 12:11 Dose: 300 mg Citalopram Hydrobromide (Celexa Tab*) 20 mg PO DAILY [facility] Last Admin: 04/05/18 10:34 Dose: Not Given Enoxaparin Sodium (Lovenox(*)) 30 mg SUBCUT Q24H [facility] Last Admin: 04/04/18 20:43 Dose: 30 mg Piperacillin Sod/Tazobactam (Sod 3.375 gm/ Sodium Chloride) 100 mls @ 25 mls/ hr IVPB Q8H [facility] Last Admin: 04/05/18 17:19 Dose: 25 mls/hr Ondansetron HCl (Zofran Inj*) 4 mg IV Q6H PRN PRN Reason: NAUSEA Pantoprazole Sodium (Protonix Iv*) 40 mg IV DAILY [facility] Last Admin: 04/05/18 10:47 Dose: 40 mg Pharmacy Consult (Zosyn Per Pharmacy*) 1 note FOLLOW UP .ZOSYN PER PHARMACY [facility] Simvastatin (Zocor(Nf)) 10 mg PO DAILY [facility] Last Admin: 04/05/18 10:34 Dose: Not Given Vital Signs - 8 hr 04/05/18 04/05/18 04/05/18 14:35 16:09 20:35 Temperature 97.9 F 97.1 F 97.9 F Pulse Rate 52 66 56 Respiratory 20 16 16 Rate Blood Pressure 127/57 120/63 103/54 (mmHg) O2 Sat by Pulse 100 94 100 Oximetry Oxygen Devices in Use Now: None Appearance: NAD, smiling, interactive. Eyes: No Scleral Icterus, PERRLA Ears/Nose/Mouth/Throat: NL Teeth, Lips, Gums Neck: NL Appearance and Movements; NL JVP, Trachea Midline Respiratory: Symmetrical Chest Expansion and Respiratory Effort, - - anteriorly clear to ausculatation. Cardiovascular: NL Sounds; No Murmurs; No JVD, RRR Abdominal: NL Sounds; No Tenderness; No Distention, No Hepatosplenomegaly Extremities: No Edema Skin: No Rash or Ulcers Neurological: - - oriented to name only. R umbrella tipper machine weaker than left, wiggling toes. slight left nasolabial droop. Result Diagrams: 04/05/18 08:35 04/05/18 17:36 Additional Lab and Data: Laboratory Results - last 24 hr 04/05/18 04/05/18 04/05/18 08:35 08:35 15:46 WBC 7.4 RBC 2.71 L Hgb 8.8 L Hct 25 L MCV 94 MCH 33 H MCHC 35 RDW 15 Plt Count 197 MPV 8.1 Neut % (Auto) 77.1 Lymph % (Auto) 8.8 L [place] % (Auto) 6.9 Eos % (Auto) 6.8 H Baso % (Auto) 0.4 Absolute Neuts (auto) 5.7 Absolute Lymphs (auto) 0.7 L Absolute Monos (auto) 0.5 Absolute Eos (auto) 0.5 Absolute Basos (auto) 0 Absolute Nucleated RBC 0 Nucleated RBC % 0 Sodium 149 H D Potassium 3.2 L Chloride 115 H Carbon Dioxide 23 Anion Gap 11 BUN 27 H Creatinine 1.03 H Est GFR ( Amer) 61.2 Est GFR (Non-Af Amer) 50.6 BUN/Creatinine Ratio 26.2 H Glucose 83 Calcium 7.7 L Magnesium 1.9 Urine Color Yellow Urine Appearance Clear Urine pH 5.0 Ur Specific [place] 1.028 Urine Protein Negative Urine Ketones Negative Urine Blood Negative Urine Nitrate Negative Urine Bilirubin Negative Urine Urobilinogen Negative Ur Leukocyte Esterase Negative Urine Glucose Negative Urine Ascorbic Acid * A 04/05/18 17:36 WBC RBC Hgb Hct MCV MCH MCHC RDW Plt Count MPV Neut % (Auto) Lymph % (Auto) [place] % (Auto) Eos % (Auto) Baso % (Auto) Absolute Neuts (auto) Absolute Lymphs (auto) Absolute Monos (auto) Absolute Eos (auto) Absolute Basos (auto) Absolute Nucleated RBC Nucleated RBC % Sodium 138 D Potassium 4.4 Chloride 110 Carbon Dioxide 24 Anion Gap 4 BUN 29 H Creatinine 1.10 H Est GFR ( Amer) 56.7 Est GFR (Non-Af Amer) 46.9 BUN/Creatinine Ratio 26.4 H Glucose 155 H Calcium 8.2 L Magnesium Urine Color Urine Appearance Urine pH Ur Specific [place] Urine Protein Urine Ketones Urine Blood Urine Nitrate Urine Bilirubin Urine Urobilinogen Ur Leukocyte Esterase Urine Glucose Urine Ascorbic Acid Microbiology and Other Data: Microbiology 04/04/18 10:00 Blood Venous Blood Culture - Preliminary No Growth Day 1 04/04/18 10:00 Blood Venous Aerobic Blood Culture - Preliminary No Growth Day 1 04/04/18 10:00 Blood Venous Anaerobic Blood Culture - Preliminary No Growth Day 1 04/03/18 22:00 Nasal Nasal Screen MRSA (PCR) - Final Mrsa Not Detected Assess/Plan/Problems-Billing Assessment: 87 yo female PMH severe dementia p/w right weakness. s/p TPA. left frontal acute infarction on MRI. Septic with suspected aspiration, improved on zosyn. Anemic, downtrending with episode of nose/mouth/gum bleeding after TPA. Passed dysphagia screen and much more alert and verbal now. - Patient Problems (1) Ischemic stroke of frontal lobe Current Visit: Yes Status: Acute Code(s): I63.9 - CEREBRAL INFARCTION, UNSPECIFIED SNOMED Code(s): 070558688 Comment: s/p TPA repeat CTH w/o bleed MRI Brain w/ 1.4 cm left frontal and central gyrus acute infarction supportive measures pased speech eval, unrestricted diet. switch to aspirin 81mg po from rectal, plan plavix if anemia stabilizes appreciate Neurology recs ECHO w/ bubble w/o embolic source Telemetry - no Afib noted. statin again as able to take po again. LDL 102, HDL 36 Severe dementia pre-existing her prognosis is guarded. Palliative care consulted. Baseline per brother was that she could sometimes walk with walker with assistance. Had daytime 7 day a week care previously. (2) DNR (do not resuscitate) Current Visit: Yes Status: Acute Comment: MOLST filled out by brother Carlos Enrique 04/04. DNR/DNI (3) DVT prophylaxis Current Visit: No Status: Acute Code(s): ZUE7567 - SNOMED Code(s): 268004043 Comment: lovenox (4) Dementia Current Visit: No Status: Acute Code(s): F03.90 - UNSPECIFIED DEMENTIA WITHOUT BEHAVIORAL DISTURBANCE SNOMED Code(s): 65834558 Comment: Brain MRI w/ possible e/o Normal Pressure Hydrocephalus, f/u Neuro recs. Consideration for LP? supportive care (5) HLD (hyperlipidemia) Current Visit: No Status: Acute Code(s): E78.5 - HYPERLIPIDEMIA, UNSPECIFIED SNOMED Code(s): 13338289 Comment: Continue simvastatin (6) HTN (hypertension) Current Visit: No Status: Acute Code(s): I10 - ESSENTIAL (PRIMARY) HYPERTENSION SNOMED Code(s): 43832606 Comment: normotensive (currently holding home triameterine/HCTZ), in setting of anemia, ? aspiration sepsis (7) Anemia Current Visit: Yes Status: Acute Code(s): D64.9 - ANEMIA, UNSPECIFIED SNOMED Code(s): 297725757 Comment: likely acute blood loss anemia in setting of TPA. had bleeding of gums, nose, mouth per report. f/u fecal occult. UA w/o blood. Status and Disposition: medicine inpatient, pending discharge home (if anemia stabilizes)
[2018-04-05] MEDS: Enoxaparin(*) 30 MG/0.3 ML SYR SUBCUT SCH (22:30)
[2018-04-06 02:55] LABS: Urine Appearance Clear; Urine Bilirubin Negative (Negative); Urine Blood Negative (Negative); Urine Color Yellow; Urine Glucose Negative (Negative); Urine Ketones Negative (Negative); Urine Nitrite Negative (Negative); Urine Protein Negative (Negative); Urine Specific Gravity 1.024 (1.010-1.030); Urine Urobilinogen Negative (Negative)
[2018-04-06 07:13] LABS: BUN/Creatinine Ratio 24.3 (8-20); Calcium 8.4 mg/dL (8.6-10.3); EGFR Non-African American 50.6 (>60); Magnesium 2.1 mg/dL (1.9-2.7)
--- NOTE | 2018-04-06 07:25 | PN ---
Hospitalist Progress Note Date of Service: 04/05/18 got called reg mri of head acute stroke size 0.9*1.3 cm spoke with neuro public relations analyst Dr Brooke hernández this. pt has been on asa recatl and had echo done ---> was not on asa at prior to admission ---> neuro originally was going to place pt on plavix when first was consulted in am besides asa as well but pt has dropped of hg from 11 to 9---> suggested occult stool and urine for blood requested already
[2018-04-06] MEDS: Omeprazole CAP (NF) 20 MG CAP.DR PO SCH (08:19)
[2018-04-06] MEDS: Amoxicillin/Clavulanate TAB* 875 MG PO SCH ×3 (08:19→22:11)
[2018-04-06 08:20] LABS: Potassium 3.4 mmol/L (3.5-5.0)
[2018-04-06] MEDS: Aspirin 81 mg CHEW TAB* 81 MG TAB.CHEW PO SCH (08:20)
[2018-04-06] MEDS: Citalopram TAB* 20 MG PO SCH (08:20)
[2018-04-06] MEDS: CMCS:Simvastatin TAB(NF) 10 MG TAB PO SCH (08:20)
[2018-04-06 10:56] LABS: ABS Basophils 0 10^3/ul (0-0.2); ABS Eosinophils 0.5 10^3/ul (0-0.6); ABS Lymphocytes 0.9 10^3/ul (1.0-4.8); ABS Monocytes 0.4 10^3/ul (0-0.8); ABS Nucleated RBC 0 10^3/ul; Eosinophil % 9.5 % (0-6); Hematocrit 26 % (35-47); Hemoglobin 8.8 g/dl (12.0-16.0); Lymphocyte % 18.2 % (25-47); Mean Corpuscular HGB Conc 34 g/dl (31-36); Mean Corpuscular Hemoglobin 32 pg (27-31); Mean Corpuscular Volume 93 fL (80-97); Mean Platelet Volume 9.1 fL (7.4-10.4); Nucleated Red Blood Cells % 0; Platelet Count 209 10^3/ul (150-450); Red Blood Count 2.74 10^6/ul (4.00-5.40); Red Cell Distribution Width 15 % (10.5-15); White Blood Count 4.7 10^3/ul (3.5-10.8)
[2018-04-06] MEDS ORDERED: Potassium Chlor TAB* 20 MEQ TAB.ER PO ONE (13:21)
--- NOTE | 2018-04-06 15:07 | PN ---
Subjective Date of Service: 04/06/18 Interval History: Pt is pleasant and confused , seen with brother and her vehicle check in clerk. Has no complaint. Has difficulties following commands Objective Active Medications: Amoxicillin/Clavulanate Potassium (Augmentin Tab*) 875 mg PO BID [facility] Last Admin: 04/06/18 08:19 Dose: 875 mg Aspirin (Aspirin 81 Mg Chew Tab*) 81 mg PO DAILY [facility] Last Admin: 04/06/18 08:20 Dose: 81 mg Citalopram Hydrobromide (Celexa Tab*) 20 mg PO DAILY [facility] Last Admin: 04/06/18 08:20 Dose: 20 mg Enoxaparin Sodium (Lovenox(*)) 30 mg SUBCUT Q24H [facility] Last Admin: 04/05/18 22:30 Dose: 30 mg Omeprazole (Prilosec Cap*) 20 mg PO DAILY [facility] Last Admin: 04/06/18 08:19 Dose: 20 mg Ondansetron HCl (Zofran Inj*) 4 mg IV Q6H PRN PRN Reason: NAUSEA Simvastatin (Zocor(Nf)) 10 mg PO DAILY [facility] Last Admin: 04/06/18 08:20 Dose: 10 mg Vital Signs - 8 hr 04/06/18 04/06/18 07:50 08:00 Temperature 98.0 F Pulse Rate 57 Respiratory 16 16 Rate Blood Pressure 129/59 (mmHg) O2 Sat by Pulse 99 Oximetry Oxygen Devices in Use Now: None Appearance: 87 yo F in nAD, oriented to self only Eyes: No Scleral Icterus, PERRLA Ears/Nose/Mouth/Throat: NL Teeth, Lips, Gums, Mucous Membranes Moist Neck: NL Appearance and Movements; NL JVP, Trachea Midline Respiratory: Symmetrical Chest Expansion and Respiratory Effort Cardiovascular: NL Sounds; No Murmurs; No JVD, RRR Abdominal: NL Sounds; No Tenderness; No Distention Lymphatic: No Cervical Adenopathy Extremities: No Edema, No Clubbing, Cyanosis Skin: No Rash or Ulcers, No Nodules or Sclerosis Neurological: - - speech clear, CN 2-12 grossly intact, ?R handgrip weaker irwin left, ankles contracted at 90 degrees, moves toes b/l with no difficulty. Result Diagrams: 04/06/18 06:37 04/06/18 06:41 Additional Lab and Data: Laboratory Results - last 24 hr 04/05/18 04/05/18 04/05/18 08:35 08:35 15:46 WBC 7.4 RBC 2.71 L Hgb 8.8 L Hct 25 L MCV 94 MCH 33 H MCHC 35 RDW 15 Plt Count 197 MPV 8.1 Neut % (Auto) 77.1 Lymph % (Auto) 8.8 L [place] % (Auto) 6.9 Eos % (Auto) 6.8 H Baso % (Auto) 0.4 Absolute Neuts (auto) 5.7 Absolute Lymphs (auto) 0.7 L Absolute Monos (auto) 0.5 Absolute Eos (auto) 0.5 Absolute Basos (auto) 0 Absolute Nucleated RBC 0 Nucleated RBC % 0 Sodium 149 H D Potassium 3.2 L Chloride 115 H Carbon Dioxide 23 Anion Gap 11 BUN 27 H Creatinine 1.03 H Est GFR ( Amer) 61.2 Est GFR (Non-Af Amer) 50.6 BUN/Creatinine Ratio 26.2 H Glucose 83 Calcium 7.7 L Magnesium 1.9 Urine Color Yellow Urine Appearance Clear Urine pH 5.0 Ur Specific [place] 1.028 Urine Protein Negative Urine Ketones Negative Urine Blood Negative Urine Nitrate Negative Urine Bilirubin Negative Urine Urobilinogen Negative Ur Leukocyte Esterase Negative Urine Glucose Negative Urine Ascorbic Acid * A 04/05/18 17:36 WBC RBC Hgb Hct MCV MCH MCHC RDW Plt Count MPV Neut % (Auto) Lymph % (Auto) [place] % (Auto) Eos % (Auto) Baso % (Auto) Absolute Neuts (auto) Absolute Lymphs (auto) Absolute Monos (auto) Absolute Eos (auto) Absolute Basos (auto) Absolute Nucleated RBC Nucleated RBC % Sodium 138 D Potassium 4.4 Chloride 110 Carbon Dioxide 24 Anion Gap 4 BUN 29 H Creatinine 1.10 H Est GFR ( Amer) 56.7 Est GFR (Non-Af Amer) 46.9 BUN/Creatinine Ratio 26.4 H Glucose 155 H Calcium 8.2 L Magnesium Urine Color Urine Appearance Urine pH Ur Specific [place] Urine Protein Urine Ketones Urine Blood Urine Nitrate Urine Bilirubin Urine Urobilinogen Ur Leukocyte Esterase Urine Glucose Urine Ascorbic Acid Microbiology and Other Data: Microbiology 04/04/18 10:00 Blood Venous Blood Culture - Preliminary No Growth Day 1 04/04/18 10:00 Blood Venous Aerobic Blood Culture - Preliminary No Growth Day 1 04/04/18 10:00 Blood Venous Anaerobic Blood Culture - Preliminary No Growth Day 1 04/03/18 22:00 Nasal Nasal Screen MRSA (PCR) - Final Mrsa Not Detected Assess/Plan/Problems-Billing Assessment: 87 yo female PMH severe dementia p/w right weakness. s/p TPA. left frontal acute infarction on MRI. Septic with suspected aspiration, improved on zosyn. Anemic, downtrending with episode of nose/mouth/gum bleeding after TPA. Passed dysphagia screen and much more alert and verbal now. - Patient Problems (1) Ischemic stroke of frontal lobe Comment: cont ASA s/p TPA repeat CTH w/o bleed MRI Brain w/ 1.4 cm left frontal and central gyrus acute infarction supportive measures pased speech eval, unrestricted diet. due to low hb will appreciate Neurology recs ECHO w/ bubble w/o embolic source Telemetry - no Afib noted. statin again as able to take po again. LDL 102, HDL 36 Severe dementia pre-existing her prognosis is guarded. Palliative care consulted. Baseline per brother was that she could sometimes walk with walker with assistance. Had daytime 7 day a week care previously. (2) Anemia Comment: likely acute blood loss anemia in setting of TPA. had bleeding of gums , nose, mouth per report. UA w/o blood. (3) HLD (hyperlipidemia) Comment: Continue simvastatin (4) HTN (hypertension) Comment: normotensive (currently holding home triameterine/HCTZ), in setting of anemia, ? aspiration sepsis (5) Aspiration into airway Comment: due to aspiration suspected prior to admission pt was tx with Zosyn x 2 days, Will cont augmentin x 5 days. (6) DVT prophylaxis Comment: lovenox Status and Disposition: pending discharge home tomorrow with hospice
[2018-04-06 21:20] VITALS: BP 133/78
[2018-04-06] MEDS: Enoxaparin(*) 30 MG/0.3 ML SYR SUBCUT SCH (21:24)
[2018-04-07] MEDS: Citalopram TAB* 20 MG PO SCH (09:46)
[2018-04-07] MEDS: Omeprazole CAP (NF) 20 MG CAP.DR PO SCH (09:46)
[2018-04-07] MEDS: Amoxicillin/Clavulanate TAB* 875 MG PO SCH (09:46)
[2018-04-07] MEDS: CMCS:Simvastatin TAB(NF) 10 MG TAB PO SCH (09:46)
[2018-04-07] MEDS: Aspirin 81 mg CHEW TAB* 81 MG TAB.CHEW PO SCH (09:46)
--- NOTE | 2018-04-07 13:10 | DS ---
CC: Dr. Vanesa Hernandez; Dr. Powell* DISCHARGE SUMMARY: DATE OF ADMISSION: 04/03/18 DATE OF DISCHARGE: 04/07/18 PRIMARY CARE PROVIDER: Dr. Vanesa Hernandez. DISCHARGE DIAGNOSES: 1. Acute ischemic left frontal stroke with residual mildly decreased right handgrip. 2. Acute hypoxemic respiratory failure that resolved, likely related to aspiration at admission. SECONDARY DIAGNOSES: 1. History of [id number]-bnxawv dementia. 2. History of hypertension. 3. Breast cancer. 4. Hyperlipidemia. 5. Pancreatitis. MEDICATIONS AT DISCHARGE: Include: 1. Lexapro 10 mg daily. 2. Meclizine 12.5 mg b.i.d. p.r.n. 3. Multivitamin 1 tablet daily. 4. Zocor 10 mg daily. 5. Augmentin 875 mg b.i.d. for 3 days total, then stop. 6. Aspirin 81 mg daily. LABORATORY DATA AND STUDIES PERFORMED DURING THE HOSPITAL STAY: On 04/06/18: White blood cell count of 4.7, hemoglobin of 8.8, hematocrit of 26, and platelets of 209. Sodium was 143, potassium 3.4, chloride 115, carbon dioxide 23, BUN 25 and creatinine 1.03. Liver function tests obtained on admission were unremarkable. Brain MRI obtained on 04/05/18. Impression: "Left frontal and central gyrus restricted diffusion consistent with acute infarct. No hemorrhage. Left mastoid partial T2 hyperintense mastoid opacification, mastoid effusion and mastoiditis cannot be excluded. Clinical correlation recommended. Mild diffuse ventriculomegaly out of proportion to sulci raises possibility of normal pressure hydrocephalus, clinical correlation recommended." Brain CT obtained on 04/04/18. Impression: "Negative for intracranial hemorrhage. No compelling CT stigmata involving ischemic stroke. Advanced involutional change and chronic small vessel ischemic change." CT angiogram of the chest obtained on 04/03/18. Impression: "Gross occlusion of 1 or 2 of the branches of the right middle cerebral artery. One dominant M2 segment of the right middle cerebral artery remains widely patent. No large vessel occlusion or artery stenosis at the left middle cerebral artery. CT angiogram. Impression: "70% stenosis of the right internal carotid artery and 50% stenosis of the left internal carotid artery." Portable chest x-ray last obtained on 04/03/18. Impression: "Limited hypoventilated exam with subsegmental atelectasis." CONSULTATIONS: By Dr. Powell and Dr. Brooke from Neurology. Transthoracic echocardiogram obtained on 04/04/18 showed EF of 55% to 60% with no PFO noted. Mild aortic regurgitation and no significant changes obtained comparing with echocardiogram from November of 2017. HOSPITALIZATION COURSE: Idalmis Montano is an 87-year-old female with history of dementia who is 24x7 care at home hired and whose living relative is her brother who is attending to her care but lives in a different apartment, who presented to the hospital on 04/03/18 complaining of sudden onset of aphasia and right-sided facial droop and right-sided weakness. The patient had a CTA that showed right MCA occlusion. She was treated with TPA, initially placed on the intensive care unit. When she came into the hospital, she had a temperature of 100.4 degrees and she was vomiting. An aspiration into the airway was suspected. She also initially required oxygen treatment and had acute hypoxemic respiratory failure. That gradually resolved when the patient was treated on Zosyn. Throughout her hospital stay, she was seen by speech therapist and was cleared from their standpoint for regular diet. In regards to her neuro status, the patient's neurological exam was slowing going back to baseline and by the time of discharge, she had minimally decreased right- sided hand area field manager. An MRI of the brain obtained on 04/05/18 did show acute CVA in the frontal region. Please also note that after TPA treatment, the patient was noted to be bleeding profusely from her gums and her anemia with hemoglobin dropping from 11.1 to 8.8 by the time of discharge was attributed to that. Due to that, although initially Plavix and aspirin was considered, the patient remained on aspirin only. It should be also noted that during the patient's hospital stay, the patient's brother chose for the patient to be involved in hospice care. Hospice reviewed the patient's chart and noted that due to dementia she would be a good candidate for at home hospice. The plan is for the patient to leave the hospital today to go home under the care as previously provided of a hired aide. Hospice sign in will occur today later on during the daytime. The patient still requires another 3 days out of 7 days of her treatment with antibiotics got aspiration into the airway which is going to be provided outpatient with p.o. Augmentin. Her acute hypoxemic respiratory failure resolved and she had no further problems with breathing throughout her hospital stay. PHYSICAL EXAMINATION AT DISCHARGE: Blood pressure of 133/78, heart rate of 66 and regular, respiratory rate 16, oxygen saturation 100% on room air, and temperature 99.7. General Appearance: This is a very pleasant 87-year-old female who is in no acute distress. The patient is oriented to self only and pleasantly confused. HEENT: Head atraumatic and normocephalic. Eyes; pupils are equal, round, and reactive to light and accommodation. Oropharynx clear. Mucosa moist. Neck: Supple. No JVD, no bruits bilaterally. Cardiovascular: Regular rate and rhythm. No murmur. Respiratory: Clear to auscultation bilaterally. Abdomen: Soft and nontender. Bowel sounds present in all 4 quadrants. Extremities: There is no edema. Pulses are +2 bilaterally. No clubbing or cyanosis. On neuro evaluation, the patient's right hand is slightly weaker than the left. There is no pronator drift. The patient has limited range of motion in bilateral ankles and she is unable to hold her legs against gravity for more than 3 seconds bilaterally. It appears that apart from mildly decreased right-sided handgrip, all of the other deficits are due to generalized weakness, deconditioning, and dementia which are chronic. Once again, the patient is going to be discharged to home with hospice sign in today. The patient is recommended to follow up with her primary care provider in 4 to 7 days. Please note that this is a short summary of the patient's hospital stay. Please refer to further medical records for details. TIME SPENT: Approximately 45 minutes was spent on the patient's discharge. [id number]/[facility] #: [id number] ARABELLA
== END 2018-04-07 11:34 | disposition hospice, home (50) | DRG 61 ==
LOC: ED 17:32 → ICU 21:08 → MEDTELE 04-04 21:52
PROVIDERS: ADMIT Internal Medicine; ATTEND Internal Medicine
DX: I63.511 Cerebral infarction due to unspecified occlusion or stenosis of right middle cerebral artery (principal); J96.01 Acute respiratory failure with hypoxia; G81.91 Hemiplegia, unspecified affecting right dominant side; R04.2 Hemoptysis; R29.898 Other symptoms and signs involving the musculoskeletal system; I10 Essential (primary) hypertension; E78.5 Hyperlipidemia, unspecified; R40.2362 Coma scale, best motor response, obeys commands, at arrival to emergency department; R40.2142 Coma scale, eyes open, spontaneous, at arrival to emergency department; R40.2242 Coma scale, best verbal response, confused conversation, at arrival to emergency department; R29.719 NIHSS score 19; I44.7 Left bundle-branch block, unspecified; R47.01 Aphasia; R29.810 Facial weakness; F32.9 Major depressive disorder, single episode, unspecified; G30.9 Alzheimer's disease, unspecified; F02.80 Dementia in other diseases classified elsewhere, unspecified severity, without behavioral disturbance, psychotic disturbance, mood disturbance, and anxiety; D64.9 Anemia, unspecified; R32 Unspecified urinary incontinence; I35.1 Nonrheumatic aortic (valve) insufficiency; Z66 Do not resuscitate; Z85.3 Personal history of malignant neoplasm of breast; Z87.891 Personal history of nicotine dependence; Z79.82 Long term (current) use of aspirin; Z99.81 Dependence on supplemental oxygen
CPT/HCPCS: 36415; 70450; 70496; 70498; 70551; 71045; 80048; 80053; 80061; 81003; 83605; 83735; 84484; 85025; 85610; 85730; 86850; 86900; 86901; 87040; 87641; 93005; 93306; 99285; A9270-GY; G8978-GP-CM; G8979-GP-CK; G8987-GO-CM; G8988-GO-CK; J1650; J2543; J2997; J3475; J3480; Q9967

== ENCOUNTER 2018-05-04 15:43 | Inpatient (IN) | payer MEDICARE, MEDICAID ==
--- NOTE | 2018-05-04 16:27 | ED ---
Complex/Multi-Sys Presentation - HPI Summary HPI Summary: Level 5 caveat: Unable to obtain complete HPI due to Dementia The pt is an 87 y/o female brought in by ambulance to [facility] for residential care. The local adult protection services (APS) at [facility] reports that the pt is not able to take care of herself at home any more. The pt denies any pain. Home Medications Medication Instructions Recorded Confirmed Type Meclizine TAB* [Antivert 12.5 TAB*] 12.5 mg PO BID PRN 11/19/17 05/04/18 History Multivitamins/Minerals TAB* 1 tab PO DAILY 11/19/17 05/04/18 History [Theragran/minerals TAB*] Simvastatin TAB(NF) [Zocor 10 MG 10 mg PO DAILY 11/19/17 05/04/18 History (NF)] Escitalopram Oxalate [Lexapro 10 10 mg PO DAILY 04/05/18 05/04/18 History mg] Aspirin 81 mg CHEW TAB* 81 mg PO DAILY #30 tab.chew 04/07/18 05/04/18 Rx Senna TAB* [Senokot TAB*] 1 tab PO DAILY PRN 05/04/18 05/04/18 History - History Of Current Complaint Chief Complaint: EDGeneral Time Seen by Provider: 05/04/18 16:18 Hx Obtained From: EMS, Other: - [facility]- [facility] Hx From Patient Unobtainable Due To: Dementia Severity Currently: None - Allergies/Home Medications Allergies/Adverse Reactions: Allergies Allergy/AdvReac Type Severity Reaction Status Date / Time No Known Allergies Allergy Verified 05/04/18 15:50 Home Medications: Home Medications Senna TAB* [Senokot TAB*] 1 tab PO DAILY PRN 05/04/18 [History Confirmed ] PMH/Surg Hx/FS Hx/Imm Hx Previously Healthy: No - Level 5 caveat: Unable to obtain complete PMHx due to Dementia Endocrine/Hematology History: Denies: Hx Diabetes Cardiovascular History: Reports: Hx Hypercholesterolemia, Hx Hypertension - MEDICATED Denies: Hx Pacemaker/ICD Respiratory History: Denies: Hx Asthma Sensory History: Denies: Hx Contacts or Glasses, Hx Hearing Aid Opthamlomology History: Denies: Hx Contacts or Glasses Neurological History: Reports: Hx Dementia Psychiatric History: Denies: Hx Panic Disorder - Cancer History Cancer Type, Location and Year: Melanoma - Surgical History Surgery Procedure, Year, and Place: Left Ankle fx ORIF 2003. Left Breast Lumpectomy date unknown Infectious Disease History: No Infectious Disease History: Denies: Traveled Outside the [place] in Last 30 Days - Family History Known Family History: Positive: Cardiac Disease - Coronary Artery Disease Family History: No family history of breast cancer. - Social History Occupation: Retired Lives: Alone Alcohol Use: None Substance Use Type: Reports: None Smoking Status (MU): Former Smoker Review of Systems - ROS Summary Review of Systems Summary: Level 5 caveat: Unable to obtain complete ROS due to Dementia Constitutional: Negative - Body aches Positive: no symptoms reported All Other Systems Reviewed And Are Negative: No Physical Exam - Summary Physical Exam Summary: Level 5 caveat: Unable to obtain complete PE due to Dementia Appearance: Confused, no pain distress Skin: warm, dry, reflects adequate perfusion Head/face: normal Eyes: EOMI, HODAN ENT: normal Neck: supple, non-tender Respiratory: CTA, breath sounds present Cardiovascular: RRR, pulses symmetrical Abdomen: non-tender, soft Musculoskeletal: normal, strength/ROM intact Neuro: normal, Triage Information Reviewed: Yes Vital Signs On Initial Exam: Initial Vitals Temp Pulse Resp BP Pulse Ox 97.8 F 63 16 157/80 96 05/04/18 15:45 05/04/18 15:45 05/04/18 15:45 05/04/18 15:45 05/04/18 15:45 Vital Signs Reviewed: Yes Diagnostics - Vital Signs Vital Signs Temp Pulse Resp BP Pulse Ox 05/04/18 15:45 97.8 F 63 16 157/80 96 - Laboratory Result Diagrams: 05/04/18 16:34 05/04/18 16:34 Lab Statement: Any lab studies that have been ordered have been reviewed, and results considered in the medical decision making process. Complex Multi-Symp Course/Dx Course Of Treatment: A demented 87 year-old F brought in by ambulance to [facility] for residential care. The local adult protection services (APS) at [facility] reports that the pt is not able to take care of herself at home any more. The pt denies any pain. A physical exam revealed confusion. I discussed the care of the pt with Dr. Pederson-hospitalist who agreed to admi the pt. Patient will be admitted with a final Dx of dementia. Pt is agreeable with this plan. Allergies noted. - Diagnoses Provider Diagnoses: Dementia Discharge - Sign-Out/Discharge Documenting (check all that apply): Patient Departure - Admit - Discharge Plan Condition: Stable Disposition: ADMITTED TO [facility] Referrals: Vanesa Kaufman MD [Primary Care Provider] - - Billing Disposition and Condition Condition: STABLE Disposition: Admitted to [facility] - Attestation Statements Document Initiated by Adams: Yes Documenting Scribe: Alejandra Meraz Provider For Whom Adams is Documenting (Include Credential): Dr. Joel Stephens MD Scribe Attestation: Alejandra Poe scribed for Dr. Joel Stephens MD on 05/04/18 at 1906. Scribe Documentation Reviewed: Yes Provider Attestation: The documentation as recorded by the Alejandra vail accurately reflects the service I personally performed and the decisions made by , Dr. Joel Stephens MD Status of Scribe Document: Viewed
[2018-05-04 16:46] LABS: ABS Basophils 0.1 10^3/ul (0-0.2); ABS Eosinophils 0.4 10^3/ul (0-0.6); ABS Lymphocytes 1.4 10^3/ul (1.0-4.8); ABS Monocytes 0.8 10^3/ul (0-0.8); ABS Neutrophils 5.8 10^3/ul (1.5-7.7); ABS Nucleated RBC 0 10^3/ul; Eosinophil % 4.7 %; Hematocrit 32 % (35-47); Hemoglobin 11.1 g/dl (12.0-16.0); Lymphocyte % 16.6 %; Mean Corpuscular HGB Conc 35 g/dl (31-36); Mean Corpuscular Hemoglobin 32 pg (27-31); Mean Corpuscular Volume 93 fL (80-97); Mean Platelet Volume 8.3 fL (7.4-10.4); Nucleated Red Blood Cells % 0; Platelet Count 243 10^3/ul (150-450); Red Blood Count 3.45 10^6/ul (4.00-5.40); Red Cell Distribution Width 15 % (10.5-15); White Blood Count 8.5 10^3/ul (3.5-10.8)
[2018-05-04 16:54] LABS: Activated Partial Thrombo Time 27.2 seconds (26.0-36.3); INR 0.97 (0.77-1.02)
[2018-05-04 17:05] LABS: Albumin 3.4 g/dL (3.2-5.2); BUN/Creatinine Ratio 28.9 (8-20); Calcium 9.4 mg/dL (8.6-10.3); EGFR Non-African American 59.1 (>60); Globulin 3.3 g/dL (2-4); Potassium 3.7 mmol/L (3.5-5.0); Total Bilirubin 0.6 mg/dL (0.2-1.0); Total Protein 6.7 g/dL (6.4-8.9)
[2018-05-04] MEDS ORDERED: Acetaminophen TAB* 325 MG PO PRN (18:06)
[2018-05-04] MEDS ORDERED: Senna TAB PO PRN (18:07)
[2018-05-04] MEDS ORDERED: Ondansetron ODT TAB* 4 MG SL PRN (19:36)
[2018-05-04] MEDS ORDERED: Ondansetron ODT TAB* 4 MG ONE (19:42)
--- NOTE | 2018-05-04 20:47 | HP ---
CC: Dr. Vanesa Hernandez; Dr. Powell.* HISTORY AND PHYSICAL: DATE OF ADMISSION: 05/04/18. PRIMARY CARE PROVIDER: Dr. Vanesa Hernandez. CHIEF COMPLAINT: The patient was brought as a fci admission after seen by Adult Protective Services and Hospice at her home. HISTORY OF PRESENT ILLNESS: Idalmis Montano is an 87-year-old female with a history of recent admission for stroke on 04/03/18 from which she was noted to have mildly decreased right-sided handgrip. Patient was noted to have severe dementia and was discharged from this admission to home hospice. As per my discussion with her brother Carlos Enrique, Idalmis's finances were dealt by Adult Protective Services. She had a friend of hers who had been taking care of her privately for the past 3 years, but this person quit a week ago. Since then, Idalmis did not have enough care at home. Her brother lives half an hour away. Adult Protective Services saw the patient today and decided that patient needs to be admitted to the hospital for fci care. Our social work was notified about it and recommended fci admission. From my discussion with the patient's brother Carlos Enrique, he was not aware that patient will not be fully admitted to the hospital, will have to come in fci, which is currently being discussed between the social media campaign manager and patient's brother. Nevertheless, patient apparently has no insect control inspector at home and she is unable to take care of herself. She is going to be placed on overnight observation. PAST MEDICAL HISTORY: 1. Hyperlipidemia. 2. Hypertension. 3. Depression. 4. History of breast cancer. 5. History of severe dementia. 6. History of pancreatitis. 7. Status post left breast lumpectomy. 8. Past medical history of ORIF of the left hip. 9. Past medical history of ischemic CVA in March 2018. MEDICATIONS AT HOME: Include, 1. Senna 1 tablet daily p.r.n. 2. Multivitamin 1 tablet daily. 3. Lexapro 10 mg daily. 4. Aspirin 81 mg daily. 5. Simvastatin 10 mg daily. 6. Meclizine 12.5 b.i.d. p.r.n. FAMILY AND SOCIAL HISTORY: Unobtainable from the patient. As per past medical records, the patient is . She has no children and her brother, Carlos Enrique is her surrogate. There is no apparent history of alcohol, tobacco, or drug use. REVIEW OF SYSTEMS: Unobtainable from this severely demented lady. PHYSICAL EXAMINATION GENERAL: The patient is a very pleasant 87-year-old female who is smiling, sitting in bed, in no acute distress. Patient answers yes to most questions. She is pleasant and cooperative with limited verbalization. VITAL SIGNS : Blood pressure 157/80, heart rate of 63 and regular, respiratory rate 16, oxygen saturation 96% on room air, temperature 97.8. HEENT: Head: Atraumatic, normocephalic. Eyes: Pupils are equal, reactive to light and accommodation. Oropharynx clear. Mucosa moist. NECK: Supple. No JVD. No bruits bilaterally. CARDIOVASCULAR: Regular rate and rhythm with 1/6 systolic ejection murmur noted on auscultation of the right upper sternal border. ABDOMEN: Soft, nontender. Bowel sounds presents in all 4 quadrants. EXTREMITIES: There is no edema. Pulses are +2 bilaterally. No clubbing or cyanosis. NEURO EVALUATION: Patient appears to have mild contractions in bilateral lower extremities. Her motor strength in bilateral lower extremities is at 3+/5. It appears that her right leg may be stronger than the left, but very difficult to evaluate this patient neurologically due to poor cooperation. Patient has good handgrip and +5 bilaterally. There was no evidence of cranial nerve palsy. Speech is clear, limited verbalization. SKIN: On evaluation of the skin, the patient is clean groomed with no evidence of wounds. She does have a stage 1 nonblanchable area on her sacrum of approximately 8-cm in diameter. LABORATORY DATA: Showed a white blood cell count of 8.5, hemoglobin of 11.1, hematocrit 32 and platelets of 243. Sodium of 140, potassium 3.0, chloride 97, carbon dioxide 26, BUN 26, creatinine 0.9. Liver function is unremarkable. ASSESSMENT AND PLAN: 1. An 87-year-old female with history of sever dementia, who I believe was on hospice care at her home, but she lost her insect control inspector in the outpatient settings , and she was brought in for social admission. The patient is going to be placed on overnight observation on fci admission. Most of her medications are going to be continued. Continue the patient's Lexapro. 2. I will place the patient on DVT prophylaxis with heparin. 3. The patient's code status is do not resuscitate. Further discussion about the code status is going to be continued with the patient's surrogate, her brother in the morning. I suspect that she should be a comfort care, but at this point, the patient's brother is communicating with our social media campaign manager since he was upset about the fci care at admission and possibility of being financially responsible for that. TIME SPENT: Approximately 45 minutes was spent on the patient's admission, more than half that time was spent [id number] with the patient in evaluation and conversation of the patient. [id number]/[facility] #: [id number] MTDD
[2018-05-04] MEDS: Heparin VIAL(*) 5000 UNITS/ML VIAL (FIVE THOUSAND) SUBCUT SCH (21:46)
[2018-05-05] MEDS: Heparin VIAL(*) 5000 UNITS/ML VIAL (FIVE THOUSAND) SUBCUT SCH ×3 (05:31→21:38)
[2018-05-05] MEDS: Aspirin 81 mg CHEW TAB* 81 MG TAB.CHEW PO SCH (08:23)
[2018-05-05] MEDS: Citalopram TAB* 20 MG PO SCH (08:23)
--- NOTE | 2018-05-05 13:55 | PN ---
Subjective Date of Service: 05/05/18 Interval History: pt is at her baseline, pleasant, cooperative to some extend, confused, minimally verbal. No complaints Objective Active Medications: Acetaminophen (Tylenol Tab*) 650 mg PO Q4H PRN PRN Reason: FEVER/PAIN Aspirin (Aspirin 81 Mg Chew Tab*) 81 mg PO DAILY [facility] Last Admin: 05/05/18 08:23 Dose: 81 mg Citalopram Hydrobromide (Celexa Tab*) 20 mg PO DAILY [facility] Last Admin: 05/05/18 08:23 Dose: 20 mg Heparin Sodium (Porcine) (Heparin Vial(*)) 5,000 units SUBCUT Q8HR [facility] Last Admin: 05/05/18 05:31 Dose: 5,000 units Ondansetron HCl (Zofran Odt Tab*) 4 mg SL Q6H PRN PRN Reason: NAUSEA/VOMITING Last Admin: 05/04/18 19:45 Dose: 4 mg Senna (Senokot Tab*) 1 tab PO DAILY PRN PRN Reason: CONSTIPATION Vital Signs - 8 hr 05/05/18 05/05/18 05/05/18 07:40 08:30 11:26 Temperature 98.1 F 97.6 F Pulse Rate 59 59 Respiratory 17 17 16 Rate Blood Pressure 138/61 123/51 (mmHg) O2 Sat by Pulse 98 96 Oximetry Oxygen Devices in Use Now: None Appearance: 87 y F inn nAD, oriented to self only Eyes: No Scleral Icterus, PERRLA Ears/Nose/Mouth/Throat: NL Teeth, Lips, Gums, Mucous Membranes Moist Neck: NL Appearance and Movements; NL JVP, Trachea Midline Respiratory: Symmetrical Chest Expansion and Respiratory Effort Cardiovascular: NL Sounds; No Murmurs; No JVD Abdominal: NL Sounds; No Tenderness; No Distention Lymphatic: No Cervical Adenopathy Extremities: No Edema, No Clubbing, Cyanosis Skin: No Rash or Ulcers, - - stage 1-2 decub noted on sacrum Neurological: NL Muscle Strength and Tone Result Diagrams: 05/04/18 16:34 05/04/18 16:34 Assess/Plan/Problems-Billing Assessment: 87 yo F with advanced dementia and recent ischemic CVA with no residual noted brought in form home hospice after her it architect quit - Patient Problems (1) Dementia Comment: supportive care, mental state at baseline (2) Ischemic stroke of frontal lobe Comment: cont ASA dx in 03/2018, no residual deficit noted (3) DVT prophylaxis Comment: HSQ (4) DNR (do not resuscitate) Status and Disposition: [facility] care
[2018-05-06] MEDS: Heparin VIAL(*) 5000 UNITS/ML VIAL (FIVE THOUSAND) SUBCUT SCH ×3 (06:23→22:15)
[2018-05-06] MEDS: Aspirin 81 mg CHEW TAB* 81 MG TAB.CHEW PO SCH (09:25)
[2018-05-06] MEDS: Citalopram TAB* 20 MG PO SCH (09:25)
[2018-05-07] MEDS: Heparin VIAL(*) 5000 UNITS/ML VIAL (FIVE THOUSAND) SUBCUT SCH ×3 (06:11→22:04)
[2018-05-07] MEDS: Citalopram TAB* 20 MG PO SCH (07:52)
[2018-05-07] MEDS: Aspirin 81 mg CHEW TAB* 81 MG TAB.CHEW PO SCH (07:52)
[2018-05-08] MEDS: Heparin VIAL(*) 5000 UNITS/ML VIAL (FIVE THOUSAND) SUBCUT SCH ×3 (05:49→23:54)
[2018-05-08 08:56] VITALS: BP 111/71
[2018-05-08] MEDS: Citalopram TAB* 20 MG PO SCH ×2 (09:26→09:38)
[2018-05-08] MEDS: Aspirin 81 mg CHEW TAB* 81 MG TAB.CHEW PO SCH ×2 (09:26→09:38)
[2018-05-09] MEDS: Heparin VIAL(*) 5000 UNITS/ML VIAL (FIVE THOUSAND) SUBCUT SCH ×3 (06:10→20:11)
[2018-05-09] MEDS: Aspirin 81 mg CHEW TAB* 81 MG TAB.CHEW PO SCH (08:52)
[2018-05-09] MEDS: Citalopram TAB* 20 MG PO SCH (08:52)
[2018-05-10] MEDS: Heparin VIAL(*) 5000 UNITS/ML VIAL (FIVE THOUSAND) SUBCUT SCH (05:44)
[2018-05-10] MEDS: Citalopram TAB* 20 MG PO SCH (11:40)
[2018-05-10] MEDS: Aspirin 81 mg CHEW TAB* 81 MG TAB.CHEW PO SCH (11:40)
--- NOTE | 2018-05-10 13:15 | DS ---
CC: Dr. Hernandez * DISCHARGE SUMMARY: DATE OF ADMISSION: 05/04/18 DATE OF DISCHARGE: 05/10/18 PRIMARY CARE PROVIDER: Dr. Hernandez. PRINCIPAL DIAGNOSIS: Inability to care for self. SECONDARY DIAGNOSES: 1. Hyperlipidemia. 2. Hypertension. 3. Depression. 4. History of breast cancer. 5. Severe dementia. DISCHARGE MEDICATIONS: 1. Senna 1 tab p.o. daily p.r.n. constipation. 2. Multivitamin 1 tab p.o. daily. 3. Lexapro 10 mg p.o. daily. 4. Aspirin 81 mg p.o. daily. 5. Simvastatin 10 mg p.o. daily. HOSPITAL COURSE: Ms. Montano is an 87-year-old female, who was admitted to [facility] from 04/03/18 through 04/07/18 where she was treated for an acute CVA. The patient was discharged home from that admission. The patient had been cared for at home privately by a friend; however, that individual quit about a week prior to admission. It was felt that she did not have enough care in her home. The patient was receiving hospice services; however, it was not felt that she was able to remain at home with the hospice services alone. For this reason, the patient was admitted under chcf care to [facility]. Case Management/Social Work have been working with the patient's brother to try to get the patient in a facility to continue to receive hospice. An attempt was made to get the patient to [place]; however, there was no luck receiving a bed offer from there. [facility] was then contacted and they are able to offer the patient a bed for today. The patient is being discharged to [facility] today. PHYSICAL EXAMINATION: On the day of discharge, the patient is awake, she is alert. Her vital signs are stable. She is markedly confused. Her cardiac exam reveals a normal S1, S2 with a regular rate and rhythm. Her lungs are clear. Her abdomen is soft, nontender, nondistended. She has no lower extremity edema. FOLLOWUP CONCERNS: The patient is being discharged to [facility] today, 05/10. ACTIVITY LEVEL: As tolerated. DIET: Regular. CONDITION ON DISCHARGE: Stable. TIME SPENT: 35 minutes was spent discharging this patient. [id number]/[facility] #: [id number] [facility]
== END 2018-05-10 14:25 | DRG 884 ==
LOC: ED 15:43 → MED 18:06 → OBSVTOIN 18:06
PROVIDERS: ADMIT Internal Medicine; ATTEND Hospitalist
DX: F03.90 Unspecified dementia, unspecified severity, without behavioral disturbance, psychotic disturbance, mood disturbance, and anxiety (principal); Z74.2 Need for assistance at home and no other household member able to render care; E78.5 Hyperlipidemia, unspecified; Z85.3 Personal history of malignant neoplasm of breast; I10 Essential (primary) hypertension; Z66 Do not resuscitate; F32.9 Major depressive disorder, single episode, unspecified; Z86.73 Personal history of transient ischemic attack (TIA), and cerebral infarction without residual deficits; Z85.820 Personal history of malignant melanoma of skin; Z82.49 Family history of ischemic heart disease and other diseases of the circulatory system; Z87.891 Personal history of nicotine dependence; Z79.82 Long term (current) use of aspirin; Z85.828 Personal history of other malignant neoplasm of skin
CPT/HCPCS: 36415; 80053; 85025; 85610; 85730; 99283; A9270-GY; J1644

== ENCOUNTER 2018-09-19 | Emergency (ER) | payer MEDICARE, MEDICAID ==
--- NOTE | 2018-09-19 00:20 | ED ---
GI/ HPI - HPI Summary HPI Summary: This patient is a 88 year old female brought in by ambulance to [facility] with a chief complaint of vomiting since 2 hours ago. Per senior living, patients emesis resembled coffee grounds, prompting call. Per EMS, who also saw emesis, they state that it looked moderately darker than normal, but did not resemble coffee grounds. The pain is rated 0/10 in severity. Symptoms aggravated by nothing. Symptoms alleviated by nothing. Patient denies any complaints at this time. HPI Limited due to Level 5 Caveat: Dementia - History of Current Complaint Stated Complaint: ABD PAIN PER EMS Hx Obtained From: Patient Onset/Duration: Started Hours Ago, Still Present Timing: Constant Severity: Mild Current Severity: None Pain Intensity: 0 Location of Pain: None Associated Signs and Symptoms: Positive: Vomiting Aggravating Factor(s): Nothing Alleviating Factor(s): Nothing - Additional Pertinent History Primary Care Physician: EDGAR - Allergy/Home Medications Allergies/Adverse Reactions: Allergies Allergy/AdvReac Type Severity Reaction Status Date / Time No Known Allergies Allergy Verified 05/04/18 15:50 Home Medications: Home Medications Ondansetron TAB* [Zofran 4 MG Tab*] 4 mg PO Q6H PRN 09/19/18 [History Confirmed 09/19/18] PMH/Surg Hx/FS Hx/Imm Hx Previously Healthy: No - PMHx Limited due to Level 5 Caveat: Dementia Endocrine/Hematology History: Denies: Hx Diabetes Cardiovascular History: Reports: Hx Hypercholesterolemia, Hx Hypertension - MEDICATED Denies: Hx Pacemaker/ICD Respiratory History: Denies: Hx Asthma Sensory History: Reports: Hx Contacts or Glasses Denies: Hx Hearing Aid Opthamlomology History: Reports: Hx Contacts or Glasses Neurological History: Reports: Hx Dementia Psychiatric History: Denies: Hx Panic Disorder - Cancer History Cancer Type, Location and Year: Melanoma - Surgical History Surgery Procedure, Year, and Place: Left Ankle fx ORIF 2003. Left Breast Lumpectomy date unknown Infectious Disease History: No Infectious Disease History: Denies: Traveled Outside the [place] in Last 30 Days - Family History Known Family History: Positive: Cardiac Disease - Coronary Artery Disease Family History: No family history of breast cancer. - Social History Alcohol Use: None Substance Use Type: Reports: None Smoking Status (MU): Former Smoker Review of Systems Negative: Fever Positive: Vomiting All Other Systems Reviewed And Are Negative: No - Comments Additional Review of Systems Comments: ROS Limited due to Level 5 Caveat: Dementia Physical Exam - Summary Physical Exam Summary: Appearance: Well-appearing, Well-nourished, lying in bed comfortable Skin: Warm, dry, no obvious rash Eyes: sclera anicteric, no conjunctival pallor ENT: mucous membranes moist, mouth is free of any clots or blood Neck: deferred Respiratory: No signs of respiratory distress Cardiovascular: Appears well perfused, pulses are nml Abdomen: deferred Musculoskeletal: Moving all 4 extremities without obvious discomfort Neurological: Awake and alert, mentation is normal, speech is fluent and appropriate Psychiatric: affect is normal, does not appear anxious or depressed. confusion present appropriate to dementia Triage Information Reviewed: Yes Vital Signs On Initial Exam: Initial Vitals Temp Pulse Resp BP Pulse Ox 98.0 F 88 16 153/92 98 09/19/18 00:02 09/19/18 00:02 09/19/18 00:02 09/19/18 00:02 09/19/18 00:02 Vital Signs Reviewed: Yes Completion Of Physical Exam Limited Due To: Dementia, Level 5 Diagnostics - Vital Signs Vital Signs Temp Pulse Resp BP Pulse Ox 09/19/18 00:02 98.0 F 88 16 153/92 98 - Laboratory Result Diagrams: 09/19/18 00:20 09/19/18 00:20 Lab Statement: Any lab studies that have been ordered have been reviewed, and results considered in the medical decision making process. GIGU Course/Dx - Course Course Of Treatment: This patient is a 88 year old female brought in by ambulance to [facility] with a chief complaint of vomiting since 2 hours ago. Per senior living, patients emesis resembled coffee grounds, prompting call. Per EMS , who also saw emesis, they state that it looked moderately darker than normal, but did not resemble coffee grounds. Bloodwork Obtained. Patient will be discharged with a dx of vomiting. Patient is advised to follow up with PCP in 3 days. The patient is agreeable with this plan. - Diagnoses Provider Diagnoses: Vomiting Discharge - Sign-Out/Discharge Documenting (check all that apply): Patient Departure Patient Received Moderate/Deep Sedation with Procedure: No - Discharge Plan Condition: Good Disposition: HOME Patient Education Materials: Acute Nausea and Vomiting (ED) Referrals: Vanesa Kaufman MD [Primary Care Provider] - If Needed - Attestation Statements Document Initiated by Scribe: Yes Documenting Scribe: Butch Napoles Provider For Whom aKrenibkaitlin is Documenting (Include Credential): Jeffrey Live MD Scribe Attestation: IButch, scribed for Jeffrey Live MD on 09/19/18 at 0106. Status of Scribe Document: Ready
[2018-09-19 00:33] LABS: ABS Eosinophils 0.2 10^3/ul (0-0.6); ABS Lymphocytes 1.2 10^3/ul (1.0-4.8); ABS Monocytes 0.8 10^3/ul (0-0.8); Eosinophil % 2.5 %; Hematocrit 36 % (35-47); Lymphocyte % 14.7 %; Mean Corpuscular HGB Conc 34 g/dL (31-36); Mean Corpuscular Hemoglobin 32 pg (27-31); Mean Corpuscular Volume 96 fL (80-97); Mean Platelet Volume 8.4 fL (7.4-10.4); Platelet Count 263 10^3/uL (150-450); Red Cell Distribution Width 14 % (10.5-15); White Blood Count 8.4 10^3/uL (3.5-10.8)
[2018-09-19 00:38] LABS: INR 0.98 (0.82-1.09)
[2018-09-19 00:44] LABS: Albumin 3.5 g/dL (3.2-5.2); BUN/Creatinine Ratio 25.3 (8-20); Calcium 9.6 mg/dL (8.6-10.3); EGFR African American 74.2 (>60); EGFR Non-African American 61.3 (>60); Globulin 3.5 g/dL (2-4); Potassium 3.7 mmol/L (3.5-5.0); Total Bilirubin 0.4 mg/dL (0.2-1.0)
[2018-09-19 01:48] VITALS: BP 105/88
== END 2018-09-19 01:46 | disposition home or self-care (01) ==
LOC: ED
DX: R11.10 Vomiting, unspecified (principal); I10 Essential (primary) hypertension; Z87.891 Personal history of nicotine dependence; E78.00 Pure hypercholesterolemia, unspecified
CPT/HCPCS: 36415; 80053; 85025; 85610; 86850; 86900; 86901; 99283